=== PATIENT | male | born 1940 | race Caucasian/White ===

== ENCOUNTER → 2016-03-03 | Outpatient (CLI) | payer MEDICARE | LOC: RAD 13:09 | PROVIDERS: ATTEND Internal Medicine Critical Care Medicine | DX: J98.4 Other disorders of lung (principal) | CPT/HCPCS: 71250 ==

== ENCOUNTER → 2016-04-11 | Outpatient (CLI) | payer MEDICARE | LOC: RAD 14:56 | PROVIDERS: ATTEND Specialist | DX: C90.01 Multiple myeloma in remission (principal) | CPT/HCPCS: 77075 ==

== ENCOUNTER 2016-04-18 08:44 | Day surgery (SDC) | payer MEDICARE ==
[2016-04-18 09:31] LABS: HEMATOCRIT 27.4 % (37.9-51.0); HEMOGLOBIN 9.3 g/dL (13.5-17.0); HGB HCT DIFFERENCE 0.5; MEAN CORPUSCULAR HEMOGLOBIN 31.4 pg (27.0-33.4); MEAN CORPUSCULAR HGB CONC 33.9 g/dL (32.0-36.0); MEAN CORPUSCULAR VOLUME 92 fl (80-97); RED BLOOD COUNT 2.96 10^6/uL (4.35-5.55); WHITE BLOOD COUNT 4.9 10^3/uL (4.0-10.5)
[2016-04-18 09:37] LABS: PROTHROMBIN TIME 12.6 SEC (11.4-15.4)
[2016-04-18 09:38] LABS: PARTIAL THROMBOPLASTIN TIME 29.7 SEC (23.5-35.8)
[2016-04-18 09:51] LABS: BLOOD UREA NITROGEN 37 mg/dL (7-20); CREATININE RESULT 5.76 mg/dL (0.52-1.25)
[2016-04-18] MEDS ORDERED: MIDAZOLAM 2 MG/2 ML INJ ONE (11:04)
[2016-04-18] MEDS ORDERED: FENTANYL CITRATE INJ/PF 100 MCG/2 ML AMPUL ONE (11:04)
[2016-04-18] MEDS ORDERED: ACETAMINOPHEN 325 MG TABLET ONE (13:35)
[2016-04-18 15:03] VITALS: BP 145/84
== END 2016-04-18 14:10 | disposition home or self-care (01) ==
LOC: RAD 08:44
PROVIDERS: ATTEND Specialist
PROC: 0QB33ZX Excision of Left Pelvic Bone, Percutaneous Approach, Diagnostic (ICD-10-PCS; principal; 2016-04-18)
DX: C90.01 Multiple myeloma in remission (principal); I12.0 Hypertensive chronic kidney disease with stage 5 chronic kidney disease or end stage renal disease; N18.6 End stage renal disease; D63.1 Anemia in chronic kidney disease; Z79.01 Long term (current) use of anticoagulants; Z88.0 Allergy status to penicillin; Z88.5 Allergy status to narcotic agent
CPT/HCPCS: 36415; 84520; 82565; 85027; 85610; 85730; 77012; 20225; A9270; J2250; J3010

== ENCOUNTER 2016-05-23 10:51 | Outpatient (CLI) | payer MEDICARE ==
[~2016-05-23 10:51] MED LIST: BORTEZOMIB SUBCUT PRN; DISPOSABLE SUBCUT PRN
[2016-05-23 11:49] VITALS: BP 149/66
== END 2016-05-23 11:51 | disposition home or self-care (01) ==
LOC: II 10:51 → 5TH 11:15 → II 11:51
PROVIDERS: ATTEND Specialist
PROC: 3E0 Administration, Physiological Systems and Anatomical Regions, Introduction (ICD-10-PCS; principal; 2016-05-23)
DX: C90.02 Multiple myeloma in relapse (principal); Z51.11 Encounter for antineoplastic chemotherapy
CPT/HCPCS: 96401; J3490; J9041

== ENCOUNTER 2016-06-13 11:47 | Outpatient (CLI) | payer MEDICARE ==
[~2016-06-13 11:47] MED LIST changes: +ACETAMINOPHEN 325 MG TABLET PO PRN; -BORTEZOMIB SUBCUT PRN; +DIPHENHYDRAMINE HCL 25 MG CAPSULE PO PRN; -DISPOSABLE SUBCUT PRN; +FUROSEMIDE INJ/PF 20 MG/2 ML SDV IV PRN; +NORMAL SALINE 1000 ML 1,000 ML IV PRN
[2016-06-13 12:37] LABS: HEMATOCRIT 24.8 % (37.9-51.0); HEMOGLOBIN 8.7 g/dL (13.5-17.0); HGB HCT DIFFERENCE 1.3; MEAN CORPUSCULAR HEMOGLOBIN 32.6 pg (27.0-33.4); MEAN CORPUSCULAR HGB CONC 35.1 g/dL (32.0-36.0); MEAN CORPUSCULAR VOLUME 93 fl (80-97); RED BLOOD COUNT 2.66 10^6/uL (4.35-5.55); RED CELL DISTRIBUTION WIDTH 14.2 % (11.5-14.0); WHITE BLOOD COUNT 4.6 10^3/uL (4.0-10.5)
[2016-06-13] MEDS ORDERED: CALCIUM CARBONATE 500 MG TABLET PO ONE (15:00)
[2016-06-13] MEDS ORDERED: SEVELAMER HCL 400 MG TABLET PO ONE (15:00)
[2016-06-13 16:54] VITALS: BP 157/78
== END 2016-06-13 17:45 | disposition home or self-care (01) ==
LOC: RAD 11:47 → 2S 12:10 → RAD 17:45
PROVIDERS: ATTEND Specialist
PROC: 30233N1 Transfusion of Nonautologous Red Blood Cells into Peripheral Vein, Percutaneous Approach (ICD-10-PCS; principal; 2016-06-13)
DX: D64.9 Anemia, unspecified (principal); C90.02 Multiple myeloma in relapse; R06.02 Shortness of breath
CPT/HCPCS: 86900; 86901; 36415; 36430; 86850; 86920; 71020; P9016; A9270 ×4; J1940

== ENCOUNTER → 2017-03-16 | Outpatient (CLI) | payer MEDICARE ==
--- NOTE | 2017-03-16 10:14 | RADIOLOGY REPORT (SQ) ---
EXAM DESCRIPTION: CHEST PA/LAT COMPLETED DATE/TIME: 03/16/2017 10:02 am REASON FOR STUDY: DYSPNEA (R06.00), ESRD (N18.6) COMPARISON: Chest x-ray dated 06/13/2016. Chest CT dated 03/03/2016. EXAM PARAMETERS: NUMBER OF VIEWS: two views TECHNIQUE: Digital Frontal and Lateral radiographic views of the chest acquired. RADIATION DOSE: NA LIMITATIONS: none FINDINGS: LUNGS AND PLEURA: Density in the right lower lobe unchanged. Bilateral pleural effusions unchanged. MEDIASTINUM AND HILAR STRUCTURES: No masses or contour abnormalities. HEART AND VASCULAR STRUCTURES: Heart normal size. No evidence for failure. BONES: No acute findings. Degenerative changes in the spine. HARDWARE: None in the chest. OTHER: No other significant finding. IMPRESSION: PERSISTENT DENSITY IN THE RIGHT LOWER LOBE AND BILATERAL PLEURAL EFFUSIONS. NO CHANGE C OMPARED TO THE PRIOR STUDIES. TECHNICAL DOCUMENTATION: JOB ID: [id number] [employer]- All Rights Reserved
== END ==
LOC: RAD 09:46
PROVIDERS: ATTEND Internal Medicine Nephrology
DX: N18.6 End stage renal disease (principal); R06.00 Dyspnea, unspecified
CPT/HCPCS: 71046

== ENCOUNTER 2017-03-20 15:52 | Inpatient (IN) | payer MEDICARE ==
--- NOTE | 2017-03-20 18:16 | ER Document Report ---
ED Medical Screen (RME) - General Chief Complaint: Shortness Of Breath Stated Complaint: CHEST PAIN,COUGH,CONGESTION Time Seen by Provider: 03/20/17 17:58 Notes: Patient presents with 5 days of progressive shortness of breath worse with lying down. Patient has a history of multiple myeloma and has had pleural effusions in the past. Denies any chest pain but does have tightness. Denies any abdominal pain nausea vomiting or diarrhea. Denies any fevers. Patient was seen in urgent care clinic and sent to emergency department for further evaluation. Patient states that he had outpatient chest x-ray performed this past Sunday but never was called regarding any results. TRAVEL OUTSIDE OF THE [place] IN LAST 30 DAYS: No - Related Data Allergies/Adverse Reactions: darbepoetin jeannie [From Aranesp (in polysorbate)] Allergy (Verified 05/23/16 11: 43) epoetin jeannie [From Epogen] Allergy (Verified 05/23/16 11:43) hydromorphone [From Dilaudid] Allergy (Verified 05/23/16 11:43) Penicillins Allergy (Verified 12/14/14 09:01) Rash Past Medical History - General Information source: Patient, Relative - Social History Chew tobacco use (# tins/day): No Frequency of alcohol use: None Drug Abuse: None - Past Medical History Cardiac Medical History: Reports: Hx Hypertension Denies: Hx Coronary Artery Disease, Hx Heart Attack Pulmonary Medical History: Reports: Hx Pneumonia - hx of year and a half ago Denies: Hx Asthma, Hx Bronchitis, Hx COPD Neurological Medical History: Denies: Hx Cerebrovascular Accident, Hx Seizures Renal/ Medical History: Reports: Hx End Stage Renal Disease, Hx Hemodialysis. Denies: Hx Peritoneal Dialysis - [facility] Musculoskeltal Medical History: Denies Hx Arthritis Past Surgical History: Reports: Hx Vascular Surgery - AV fistula - Immunizations Hx Diphtheria, Pertussis, Tetanus Vaccination: No Review of Systems - Review of Systems Constitutional: No symptoms reported EENT: No symptoms reported Cardiovascular: No symptoms reported Respiratory: No symptoms reported, Cough, Short of breath Gastrointestinal: No symptoms reported Genitourinary: No symptoms reported Male Genitourinary: No symptoms reported Musculoskeletal: No symptoms reported Skin: No symptoms reported Hematologic/Lymphatic: No symptoms reported Neurological/Psychological: No symptoms reported Physical Exam - Vital signs Vitals: Temp Pulse Resp BP Pulse Ox 97.6 F 90 18 148/74 H 97 03/20/17 16:10 03/20/17 16:10 03/20/17 16:10 03/20/17 16:10 03/20/17 16:10 - General General appearance: Appears well, Alert - HEENT Head: Normocephalic, Atraumatic - Respiratory Respiratory status: No respiratory distress Chest status: Nontender Breath sounds: Decreased air movement - Decreased breath sounds right lower base and crackles left lower base - Cardiovascular Rhythm: Regular Heart sounds: Normal auscultation Murmur: No - Abdominal Inspection: Normal Distension: No distension Bowel sounds: Normal - Neurological Neuro grossly intact: Yes - Psychological Associated symptoms: Normal affect, Normal mood Course - Vital Signs Vital signs: Temp Pulse Resp BP Pulse Ox 97.6 F 90 18 148/74 H 97 03/20/17 16:10 03/20/17 16:10 03/20/17 16:10 03/20/17 16:10 03/20/17 16:10
--- NOTE | 2017-03-20 18:53 | RADIOLOGY REPORT (SQ) ---
EXAM DESCRIPTION: CHEST PA/LAT COMPLETED DATE/TIME: 03/20/2017 6:45 pm REASON FOR STUDY: cough and congestion COMPARISON: 03/16/2017 EXAM PARAMETERS: NUMBER OF VIEWS: two views TECHNIQUE: Digital Frontal and Lateral radiographic views of the chest acquired. RADIATION DOSE: NA LIMITATIONS: none FINDINGS: LUNGS AND PLEURA: The previously described bibasilar densities appears stable. MEDIASTINUM AND HILAR STRUCTURES: No masses or contour abnormalities. HEART AND VASCULAR STRUCTURES: Heart normal size. No evidence for failure. BONES: No acute findings. HARDWARE: None in the chest. OTHER: No other significant finding. IMPRESSION: No significant interval change. Persistent bibasilar densities as noted above. Other f indings as noted above TECHNICAL DOCUMENTATION: JOB ID: [id number] [employer]- All Rights Reserved
--- NOTE | 2017-03-20 18:53 | EKG REPORT ---
SEVERITY:- ABNORMAL ECG - SINUS TACHYCARDIA RUN OF VENTRICULAR PREMATURE COMPLEXES LEFT AXIS DEVIATION. : Confirmed by: Solitario Pina MD 20-Mar-2017 18:53:14
[2017-03-20 19:18] LABS: ABSOLUTE EOSINOPHILS # (AUTO) 0.1 10^3/uL (0.0-0.6); ABSOLUTE LYMPHOCYTES (AUTO) 1.4 10^3/uL (0.5-4.7); ABSOLUTE MONOCYTES (AUTO) 0.7 10^3/uL (0.1-1.4); ABSOLUTE NEUT (AUTO) 3.5 10^3/uL (1.7-8.2); BASOPHILS % (AUTO) 0.8 % (0-2); EOSINOPHILS % (AUTO) 2.4 % (0-6); HEMATOCRIT 26.8 % (37.9-51.0); LYMPHOCYTES % (AUTO) 24.2 % (13-45); MEAN CORPUSCULAR HEMOGLOBIN 31.5 pg (27.0-33.4); MEAN CORPUSCULAR HGB CONC 33.5 g/dL (32.0-36.0); MEAN CORPUSCULAR VOLUME 94 fl (80-97); MONOCYTES % (AUTO) 12.4 % (3-13); PLATELET COUNT 164 10^3/uL (150-450); RED BLOOD COUNT 2.85 10^6/uL (4.35-5.55); SEGMENTED NEUTROPHILS % (AUTO) 60.2 % (42-78); TOTAL CELLS COUNTED % (AUTO) 100 %; WHITE BLOOD COUNT 5.8 10^3/uL (4.0-10.5)
[2017-03-20 19:25] LABS: INTERNATIONAL RATION (INR) 0.92
--- NOTE | 2017-03-20 19:31 | ER Document Report ---
ED General - General Chief Complaint: Shortness Of Breath Stated Complaint: CHEST PAIN,COUGH,CONGESTION Time Seen by Provider: 03/20/17 17:58 Notes: Patient is a 76-year-old male with a past medical history of chronic kidney disease, chronic dialysis dependence, multiple myeloma currently on chemotherapy who presents with 4 days of orthopnea, increased shortness of breath and fatigue. Patient reports that symptoms have been worsening since onset which is what prompted his visit to the emergency department. 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 He states that his shortness of breath is constant and is very unusual for him. He denies any known history of CHF but has had pleural effusions that required thoracentesis in the past. Nothing improves his shortness of breath. He denies any wheezing, fever, sputum production, but does note intermittent chest discomfort. He denies any history of similar symptoms in the past. TRAVEL OUTSIDE OF THE [place] IN LAST 30 DAYS: No - Related Data Allergies/Adverse Reactions: darbepoetin jeannie [From Aranesp (in polysorbate)] Allergy (Verified 05/23/16 11: 43) epoetin jeannie [From Epogen] Allergy (Verified 05/23/16 11:43) hydromorphone [From Dilaudid] Allergy (Verified 05/23/16 11:43) Penicillins Allergy (Verified 12/14/14 09:01) Rash Past Medical History - General Information source: Patient, Relative - Social History Smoking Status: Never Smoker Chew tobacco use (# tins/day): No Frequency of alcohol use: None Drug Abuse: None Lives with: Spouse/Significant other Family History: Reviewed & Not Pertinent Patient has suicidal ideation: No Patient has homicidal ideation: No - Past Medical History Cardiac Medical History: Reports: Hx Hypertension Denies: Hx Coronary Artery Disease, Hx Heart Attack Pulmonary Medical History: Reports: Hx Pneumonia - hx of year and a half ago Denies: Hx Asthma, Hx Bronchitis, Hx COPD Neurological Medical History: Denies: Hx Cerebrovascular Accident, Hx Seizures Renal/ Medical History: Reports: Hx End Stage Renal Disease, Hx Hemodialysis. Denies: Hx Peritoneal Dialysis - [facility] Musculoskeltal Medical History: Denies Hx Arthritis Past Surgical History: Reports: Hx Vascular Surgery - AV fistula - Immunizations Hx Diphtheria, Pertussis, Tetanus Vaccination: No Hx Pneumococcal Vaccination: 11/19/14 Review of Systems - Review of Systems Notes: Constitutional: Negative for fever. HENT: Negative for sore throat. Eyes: Negative for visual changes. Cardiovascular: Positive for chest pain. Respiratory: Positive for shortness of breath. Positive for orthopnea Gastrointestinal: Negative for abdominal pain, vomiting or diarrhea. Genitourinary: Negative for dysuria. Musculoskeletal: Negative for back pain. Skin: Negative for rash. Neurological: Negative for headaches, weakness or numbness. 10 point ROS negative except as marked above and in HPI. Physical Exam - Vital signs Vitals: Temp Pulse Resp BP Pulse Ox 97.6 F 90 18 148/74 H 97 03/20/17 16:10 03/20/17 16:10 03/20/17 16:10 03/20/17 16:10 03/20/17 16:10 Interpretation: Normal Notes: PHYSICAL EXAMINATION: GENERAL: Appears chronically ill, uncomfortable but in no acute distress HEAD: Atraumatic, normocephalic. EYES: Pupils equal round and reactive to light, extraocular movements intact, sclera anicteric, conjunctiva are normal. ENT: nares patent, oropharynx clear without exudates. Moderately dry mucous membranes. NECK: Normal range of motion, supple without lymphadenopathy LUNGS: Breath sounds clear to auscultation bilaterally and equal. No wheezes rales or rhonchi. HEART: Regular rate and rhythm without murmurs ABDOMEN: Soft, nontender, normoactive bowel sounds. No guarding, no rebound. No masses appreciated. EXTREMITIES: Normal range of motion, trace edema in the bilateral lower extremities is equal and symmetric. No cyanosis. NEUROLOGICAL: No focal neurological deficits. Moves all extremities spontaneously and on command. PSYCH: Normal mood, normal affect. SKIN: Warm, Dry, normal turgor, no rashes or lesions noted. Course - Re-evaluation Re-evalutation: 03/20/17 19:30 Patient presents with persistent orthopnea and shortness of breath for the past 4 days unchanged when he received dialysis yesterday. Patient appears chronically ill but in no acute distress. Vitals at time of my assessment without hypoxia, tachypnea or tachycardia. Patient becomes visibly dyspneic with lying flat. Chest x-ray performed today is unchanged from 1 4 days ago which shows a persistent right lower lobe density as well as bibasilar pleural effusions. Patient is currently receiving chemotherapy for multiple myeloma and is quite high risk for pulmonary embolus. He notes an associated chest heaviness slightly worsened by taking a deep breath. Given his elevated risk for pulmonary embolus and the relative unchanged nature of his chest x-ray since over a year ago, will proceed with a CT of the chest to further clarify. 03/21/17 00:28 CT of the chest does not demonstrate any evidence of an acute pulmonary embolus , chronic lung changes the right lower lobe but no evidence of pulmonary edema or infection. Patient's initial troponin was slightly elevated repeat troponin was obtained and is downtrending. Did a bedside echocardiogram that did not Demster any evidence of a pericardial effusion but does show global dyskinesis of the heart and this is clinically consistent with my primary concern of the patient has developed CHF or pulmonary hypertension given his clinical history. I discussed at length with hospital Dr. Anders who will accept the patient for admission for inpatient echocardiogram and consideration of a stress test as well as a cardiology consult. - Vital Signs Vital signs: Temp Pulse Resp BP Pulse Ox 97.6 F 90 22 H 142/78 H 98 03/20/17 16:10 03/20/17 16:10 03/21/17 02:01 03/21/17 02:01 03/21/17 02:01 - Laboratory Result Diagrams: 03/20/17 19:00 03/20/17 19:00 Laboratory results interpreted by me: 03/20/17 03/20/17 03/20/17 19:00 19:00 19:00 RBC 2.85 L Hgb 9.0 L Hct 26.8 L Sodium 136.8 L BUN 35 H Creatinine 5.71 H Est GFR ( Amer) 12 L Est GFR (Non-Af Amer) 10 L Magnesium 2.4 H Direct Bilirubin 0.5 H AST 15 L ALT 15 L NT-Pro-B Natriuret Pep 82925 H - Diagnostic Test Radiology reviewed: Image reviewed, Reports reviewed Radiology results interpreted by me: 03/21/17 02:46 Chest x-ray: Scarring of the right lung base unchanged from prior exam - EKG Interpretation by Me Additional EKG results interpreted by me: 03/21/17 02:46 Sinus tachycardia. Rate 107. Frequent PVCs. No ST elevations or depressions. Discharge - Discharge Clinical Impression: Orthopnea, End stage renal disease, Shortness of breath, Chest discomfort Condition: Fair Disposition: ADMITTED OBSERVATION Admitting Provider: [facility] Admitted: Telemetry
[2017-03-20 19:34] LABS: ALANINE AMINOTRANSFERASE 15 U/L (21-72); ALBUMIN 4.3 g/dL (3.5-5.0); ALKALINE PHOSPHATASE 69 U/L (38-126); ANION GAP 9 (5-19); ASPARTATE AMINO TRANSFERASE 15 U/L (17-59); BILIRUBIN,DIRECT 0.5 mg/dL (0.0-0.4); BILIRUBIN,TOTAL 0.5 mg/dL (0.2-1.3); BLOOD UREA NITROGEN 35 mg/dL (7-20); CALCIUM 10.2 mg/dL (8.4-10.2); CARBON DIOXIDE 27 mmol/L (22-30); CHLORIDE 101 mmol/L (98-107); GLUCOSE 98 mg/dL (75-110); MAGNESIUM 2.4 mg/dL (1.6-2.3); POTASSIUM 4.5 mmol/L (3.6-5.0); SODIUM 136.8 mmol/L (137-145); TOTAL PROTEIN 6.9 g/dL (6.3-8.2)
[2017-03-20 19:58] LABS: TROPONIN I 0.062 ng/mL
--- NOTE | 2017-03-20 21:33 | RADIOLOGY REPORT (SQ) ---
EXAM DESCRIPTION: CTA CHEST COMPLETED DATE/TIME: 03/20/2017 8:58 pm REASON FOR STUDY: eval sob, orthopnea COMPARISON: 2017 TECHNIQUE: CT scan of the chest performed using helical scanning technique with dynamic intravenous contrast injection. Images reviewed with lung, soft tissue and bone windows. Reconstructed coronal and sagittal MPR images reviewed. Additional 3 dimensional post-processing performed to develop Maximal Intensity Projection images (AK P). All images stored on PACS. All CT scanners at this facility use dose modulation, iterative reconstruction, and/or weight based d osing when appropriate to reduce radiation dose to as low as reasonably achievable (ALARA). [facility]: Dose Right [facility]: CareDose [facility]: Dose Right [facility]: Teradose 4D [facility]: InfoDif CONTRAST TYPE AND DOSE: contrast/concentration: Isovue 300.00 mg/ml; Total Contrast Delivered: 90.0 ml; Total Saline Delivered: 70.0 ml Contrast bolus adequate for pulmonary arteries and aorta. RENAL FUNCTION: Within acceptable limits. RADIATION DOSE: . LIMITATIONS: None. FINDINGS: LUNGS AND PLEURA: Small thick-walled mildly complicated right pleural effusion with extens ivy rounded atelectasis in the right lower lobe. Trace left pleural fluid with mild rounded atelecta sis laterally in the left lower lobe. Additional areas of bilateral lung scarring peripherally. The overall appearance is relatively chronic when compared to 2017 study. AORTA AND GREAT VESSELS: No aneurysm. Contrast bolus not optimized for the aorta. HEART: Cardiac enlargement. No pericardial effusion. Mild coronary calcification. PULMONARY ARTERIES: No emboli visualized in the main pulmonary arteries or the segmental branches. HILAR AND MEDIASTINAL STRUCTURES: No identified masses or abnormal nodes. HARDWARE: None in the chest. UPPER ABDOMEN: No significant findings. Limited exam. 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 BONES: No acute or significant finding. 3D MIPS: Confirm above findings. OTHER: No other significant finding. IMPRESSION: 1. Chronic lung changes. Stable appearance compared to last year. 2. No evidence of pu lmonary embolus or acute aortic disease. COMMENT: Quality ID # [id number]: Final reports with documentation of one or more dose reduction techniques (e.g., Automated exposure control, adjustment of the mA and/or kV according to patient size, use of iterative reconstruction technique) TECHNICAL DOCUMENTATION: JOB ID: [id number]- All Rights Reserved
[2017-03-20] MEDS ORDERED: HYDRALAZINE HCL INJ/PF 20 MG/1 ML SDV IV PRN (23:54)
[2017-03-20] MEDS ORDERED: LACTULOSE SYRUP 20 GM/30 ML UDCUP PO ONE (23:54)
[2017-03-20] MEDS ORDERED: ACETAMINOPHEN 325 MG TABLET PO PRN (23:54)
[2017-03-20] MEDS ORDERED: MAG HYDROX/AL HYDROX/SIMETH SUSP 30 ML UDCUP PO PRN (23:56)
[2017-03-20] MEDS ORDERED: MAGNESIUM HYDROXIDE SUSP 30 ML UDCUP PO PRN (23:56)
[2017-03-21] MEDS ORDERED: METOPROLOL TARTRATE 25 MG TABLET PO ONE (00:30)
--- NOTE | 2017-03-21 05:28 | PDOC H&P ---
History of Present Illness Admission Date/PCP: 03/21/17 00:14 XAVIER GALLAGHER MD Patient complains of: Shortness of breath, chest and abdominal pain History of Present Illness: SARAH BETH LIMA JR is a 76 year old male with a past medical history of multiple myeloma, systolic heart failure ejection fraction 40%, anemia and nonoliguric renal failure on hemodialysis with Dr. Butler Sunday. Patient presents with 5 days of shortness of breath with deep breathing and chest, abdominal pain which is intermittent, pressure-like, nonradiating of 2 out of 5 intensity becoming increasingly frequent. He denies palpitations, nausea vomiting or diaphoresis. EKG is notable for long QT interval and frequent PVCs, cardiac enzymes and CTA chest are negative. He is referred to the hospitalist for observation. Patient denies previous episode, new medications or current pain. Past Medical History Cardiac Medical History: Reports: Hypertension Denies: Coronary Artery Disease, Myocardial Infarction Pulmonary Medical History: Reports: Pneumonia - hx of year and a half ago Denies: Asthma, Bronchitis, Chronic Obstructive Pulmonary Disease (COPD) Neurological Medical History: Denies: Seizures Renal/ Medical History: Reports: End Stage Renal Disease Musculoskeltal Medical History: Denies: Arthritis Hematology: Reports: Anemia Past Surgical History Past Surgical History: Reports: Vascular Surgery - AV fistula Social History Information Source: Patient, Emergency Med Personnel, [facility] Records Lives with: Spouse/Significant other Smoking Status: Never Smoker Drugs: None Hx Prescription Drug Abuse: No - Advance Directive Resuscitation Status: Full Code Family History Family History: Hypertension Parental Family History Reviewed: Yes Children Family History Reviewed: Yes Sibling(s) Family History Reviewed.: Yes Medication/Allergy Home Medications: Amlodipine Besylate 2.5 mg PO DAILY 02/18/15 B Complex W-C No.20/Folic Acid [Triphrocaps Softgel] 1 cap PO DAILY 02/18/15 Calcium Carbonate [Calcium] 1 tab PO DAILY 02/18/15 Folic Acid 1 tab PO DAILY 02/18/15 Sevelamer Carbonate [Renvela] 800 mg PO TID 02/18/15 Sennosides/Docusate Sodium [Senna Laxative Tablet] 2 tab PO DAILY 07/13/15 Allergies/Adverse Reactions: darbepoetin jeannie [From Aranesp (in polysorbate)] Allergy (Verified 05/23/16 11: 43) epoetin jeannie [From Epogen] Allergy (Verified 05/23/16 11:43) hydromorphone [From Dilaudid] Allergy (Verified 05/23/16 11:43) Penicillins Allergy (Verified 12/14/14 09:01) Rash Review of Systems Constitutional: ABSENT: chills, fever(s), headache(s), weight gain, weight loss Eyes: ABSENT: visual disturbances Ears: ABSENT: hearing changes Cardiovascular: ABSENT: chest pain, dyspnea on exertion, edema, orthropnea, palpitations Respiratory: ABSENT: cough, hemoptysis Gastrointestinal: PRESENT: as per HPI, abdominal pain, bloating, constipation. ABSENT: coffee ground emesis, diarrhea, hematemesis, hematochezia, melena, nausea, vomiting Genitourinary: ABSENT: dysuria, hematuria Musculoskeletal: ABSENT: joint swelling Integumentary: ABSENT: rash, wounds Neurological: ABSENT: abnormal gait, abnormal speech, confusion, dizziness, focal weakness, syncope Psychiatric: ABSENT: anxiety, depression, homidical ideation, suicidal ideation Endocrine: ABSENT: cold intolerance, heat intolerance, polydipsia, polyuria Hematologic/Lymphatic: ABSENT: easy bleeding, easy bruising Physical Exam Vital Signs: Temp Pulse Resp BP Pulse Ox 98.4 F 68 20 119/68 99 03/21/17 04:13 03/21/17 04:13 03/21/17 04:13 03/21/17 04:13 03/21/17 04:13 Intake & Output 03/19/17 03/20/17 03/21/17 11:59 11:59 11:59 Intake Total 3 Balance 3 General appearance: PRESENT: no acute distress, well-developed, well-nourished Head exam: PRESENT: atraumatic, normocephalic Eye exam: PRESENT: conjunctiva pink, EOMI, PERRLA. ABSENT: scleral icterus Ear exam: PRESENT: normal external ear exam Mouth exam: PRESENT: moist, tongue midline Neck exam: ABSENT: carotid bruit, JVD, lymphadenopathy, thyromegaly Respiratory exam: PRESENT: clear to auscultation kenyatta. ABSENT: rales, rhonchi, wheezes Cardiovascular exam: PRESENT: RRR. ABSENT: diastolic murmur, rubs, systolic murmur Pulses: PRESENT: normal dorsalis pedis pul Vascular exam: PRESENT: normal capillary refill GI/Abdominal exam: PRESENT: normal bowel sounds, soft. ABSENT: distended, guarding, mass, organolmegaly, rebound, tenderness Rectal exam: PRESENT: deferred Extremities exam: PRESENT: full ROM. ABSENT: calf tenderness, clubbing, pedal edema Neurological exam: PRESENT: alert, awake, oriented to person, oriented to place , oriented to time, oriented to situation, CN II-XII grossly intact. ABSENT: motor sensory deficit Psychiatric exam: PRESENT: appropriate affect, normal mood. ABSENT: homicidal ideation, suicidal ideation Skin exam: PRESENT: dry, intact, warm. ABSENT: cyanosis, rash Results Impressions: Chest X-Ray 03/20/17 17:59 IMPRESSION: No significant interval change. Persistent bibasilar densities as noted above. Other findings as noted above Chest/Abdomen CTA 03/20/17 19:29 IMPRESSION: 1. Chronic lung changes. Stable appearance compared to last year. 2. No evidence of pulmonary embolus or acute aortic disease. Assessment & Plan - Diagnosis (1) Chest pain Qualifiers: Chest pain type: unspecified Qualified Code(s): R07.9 - Chest pain, unspecified Is this a current diagnosis for this admission?: Yes Plan: Atypical chest pain though the patient's pain is atypical there are multiple risk factors for coronary artery disease and subsequently will observe and evaluation of acute coronary syndrome versus coronary artery disease with anginal equivalents. Cardiac monitoring blood pressure Q6 hours ,TSH, lipid profile, serial cardiac enzymes and cardiac stress test. (2) Congestive heart failure Is this a current diagnosis for this admission?: Yes Plan: Appears compensated however workup does not answer his complaint, patient admits to consuming excessive beverages throughout the day. Follow-up echocardiogram. (3) End stage renal failure on dialysis Is this a current diagnosis for this admission?: Yes Plan: Nephrology consulted. (4) Constipation Is this a current diagnosis for this admission?: Yes Plan: Bowel regimen. (5) QT prolongation Is this a current diagnosis for this admission?: Yes Plan: Telemetry monitoring evaluate magnesium and ionized calcium. - Time Time Spent: 50 to 70 Minutes - Inpatient Certification Medical Necessity: Need Close Monitoring Due to Risk of Patient Decompensation
[2017-03-21] MEDS ORDERED: HEPARIN SOD (PORCINE) 5,000 UNIT/ML 1 ML SYRINGE SUBCUT SCH (06:00)
[2017-03-21] MEDS: HEPARIN SOD (PORCINE) 5,000 UNIT/ML 1 ML SYRINGE SUBCUT SCH ×3 (06:58→21:22)
[2017-03-21 07:12] LABS: CHOLESTEROL 170.91 mg/dL (0-200); CREATINE KINASE 36 U/L (55-170); TRIGLYCERIDES 86 mg/dL (<150)
[2017-03-21 07:22] LABS: CREATINE KINASE MB 0.42 ng/mL (<4.55); DIRECT LDL 90 mg/dL (<100); TROPONIN I 0.051 ng/mL
[2017-03-21] MEDS: SEVELAMER HCL 400 MG TABLET PO SCH ×3 (08:23→18:38)
[2017-03-21] MEDS ORDERED: BORTEZOMIB SUBCUT PRN ×2 (12:22→13:06)
[2017-03-21] MEDS ORDERED: DISPOSABLE SUBCUT PRN ×2 (12:22→13:06)
[2017-03-21] MEDS: DOCUSATE SODIUM 100 MG CAPSULE PO SCH (14:53)
[2017-03-21] MEDS: AMLODIPINE BESYLATE 2.5 MG TABLET PO SCH (14:54)
[2017-03-21] MEDS: SENNOSIDES/DOCUSATE 8.6-50 MG 1 EACH TABLET PO SCH (14:55)
[2017-03-21] MEDS: FOLIC ACID/VITAMIN B COMP W-C CAPSULE PO SCH (14:55)
[2017-03-21] MEDS: METOPROLOL TARTRATE 25 MG TABLET PO SCH ×2 (14:56→21:22)
[2017-03-21] MEDS: FLUTICASONE NASAL SPRAY 50 MCG/SPRY 120 SPRAY/16 GM NASL SCH ×2 (15:00→21:22)
[2017-03-21] MEDS: ASPIRIN 81 MG TABLET, ENT COATED PO SCH (15:06)
--- NOTE | 2017-03-21 16:26 | PDOC PROGRESS REPORT ---
Subjective Progress Note for:: 03/21/17 Subjective:: Patient seen on rounds. He is recently returned from dialysis. He continues to have orthopnea. He states this is been over the last 5 days. He denies any chest congestion or cough. He denies any chest pain or palpitations. He denies any lower extremity edema. He has no prior history of congestive heart failure. He states he has been on hemodialysis for the last 7 years. He denies any significant arthralgias or myalgias. Remaining review of systems are negative. Reason For Visit: ESRD,NEW HEART FAILURE Physical Exam Vital Signs: Temp Pulse Resp BP Pulse Ox 98.4 F 101 H 14 133/73 H 100 03/21/17 14:52 03/21/17 14:52 03/21/17 14:52 03/21/17 14:52 03/21/17 14:52 Intake & Output 03/20/17 03/21/17 03/22/17 06:59 06:59 06:59 Intake Total 343 Output Total 0 3900 Balance 343 -3900 Weight 96.4 kg 96.4 kg General appearance: PRESENT: no acute distress, obese, well-developed, well- nourished Head exam: PRESENT: atraumatic, normocephalic Eye exam: PRESENT: conjunctiva pink, EOMI, PERRLA. ABSENT: scleral icterus Ear exam: PRESENT: normal external ear exam Mouth exam: PRESENT: moist, tongue midline Neck exam: PRESENT: JVD, other Respiratory exam: PRESENT: crackles - Bibasilar, symmetrical, unlabored Cardiovascular exam: PRESENT: RRR. ABSENT: diastolic murmur, rubs, systolic murmur Pulses: PRESENT: normal dorsalis pedis pul Vascular exam: PRESENT: normal capillary refill GI/Abdominal exam: PRESENT: normal bowel sounds, soft. ABSENT: distended, guarding, mass, organolmegaly, rebound, tenderness Rectal exam: PRESENT: deferred Extremities exam: PRESENT: full ROM. ABSENT: calf tenderness, clubbing, pedal edema Neurological exam: PRESENT: alert, awake, oriented to person, oriented to place , oriented to time, oriented to situation, CN II-XII grossly intact. ABSENT: motor sensory deficit Psychiatric exam: PRESENT: appropriate affect, normal mood. ABSENT: homicidal ideation, suicidal ideation Skin exam: PRESENT: dry, intact, warm, other - AV shunt palpable on left forearm with good thrill. ABSENT: cyanosis, rash Results Laboratory Results: 03/21/17 03/21/17 06:38 06:38 Ionized Calcium Evelyne 1.17 Triglycerides 86 Cholesterol 170.91 LDL Cholesterol Direct 90 VLDL Cholesterol 17.0 HDL Cholesterol 59 03/21/17 03/21/17 06:38 06:38 Creatine Kinase 36 L CK-MB (CK-2) 0.42 Troponin I 0.051 Impressions: Chest X-Ray 03/20/17 17:59 IMPRESSION: No significant interval change. Persistent bibasilar densities as noted above. Other findings as noted above Chest/Abdomen CTA 03/20/17 19:29 IMPRESSION: 1. Chronic lung changes. Stable appearance compared to last year. 2. No evidence of pulmonary embolus or acute aortic disease. Assessment & Plan - Diagnosis (1) Congestive heart failure Is this a current diagnosis for this admission?: Yes Plan: Patient has no prior history of congestive heart failure. Transthoracic echocardiogram results are pending. He has been on hemodialysis for the last 7 years (2) Constipation Qualifiers: Constipation type: slow transit constipation Qualified Code(s): K59.01 - Slow transit constipation Is this a current diagnosis for this admission?: Yes (3) Orthopnea Is this a current diagnosis for this admission?: Yes Plan: Patient has no prior history of congestive heart failure echocardiogram is pending continue home cathartics patient has had orthopnea for the last 5 days which was sudden and development (4) Bilateral pleural effusion Is this a current diagnosis for this admission?: Yes Plan: Secondary to congestive heart failure (6) QT prolongation Is this a current diagnosis for this admission?: Yes (7) CKD (chronic kidney disease) stage V requiring chronic dialysis Is this a current diagnosis for this admission?: Yes Plan: Patient's been on hemodialysis for the last 7 years. (8) End stage renal failure on dialysis Is this a current diagnosis for this admission?: Yes Plan: Dr [place] is consulted - Time Time Spent with patient: 25-34 minutes Medications reviewed and adjusted accordingly: Yes Anticipated discharge: Home
[2017-03-21] MEDS: NITROGLYCERIN 5 MG (0.2 MG/HR) PATCH.TD24 TD SCH (17:14)
--- NOTE | 2017-03-21 17:42 | PDOC CONSULTATION ---
Consultation Consult Date: 03/21/17 Attending physician:: XAVIER CALDERÓN Consult reason:: I was asked by Dr. Calderón to see the patient to supervise dialysis while the patient is here in the hospital and to evaluate the patient for ultrafiltration as necessary. 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 Kumar, systolic heart failure ejection fraction 40%, anemia not able to be given Procrit secondary to allergy who presents with 5 days of shortness of breath with deep breathing and chest, abdominal pain which is intermittent, pressure-like, nonradiating of 2 out of 5 intensity becoming increasingly frequent. He relates that he could not lie down since last week Sunday because he become short of breath lying down. He actually woke up with shortness of breath a week ago. He denies palpitations , nausea vomiting or diaphoresis. He has some productive cough but unable to expectorate anything. He otherwise denies any fever nor chills. EKG is notable for long QT interval and frequent PVCs, cardiac enzymes and CTA chest are negative. Patient denies previous episode, new medications or current pain. I did order a chest x-ray on Sunday which shows minimal bilateral pleural effusion which was unchanged from previous x-ray. He had history of significant pleural effusion years ago requiring thoracentesis. Because of this complaint of shortness of breathing we have been challenging his dry weight at [facility] since last week. We are able to decrease his dry weight by 1 kg for the last 3 treatments at [facility]. However despite that he did not report any improvement in his shortness of breathing and orthopnea. I saw the patient earlier during initiation of hemodialysis this morning. This seems to be pretty comfortable but he needs to be at about 45 angle and cannot lay flat due to shortness of breath. He tolerated dialysis until the end when he started having some cramping due to ultrafiltration so we needed to give him some saline back. His echocardiogram is currently pending. He is supposed to be scheduled for stress test in the morning. Past Medical History Cardiac Medical History: Reports: Atrial Fibrillation, Hypertension-primary Pulmonary Medical History: Reports: Pneumonia - hx of year and a half ago, Other - Chronic pleural effusion Renal/ Medical History: Reports: End Stage Renal Disease, Renal Osteodystropy Malignancy Medical History: Reports: Other - Multiple myeloma status post stem cell transplant at [place], [place] GI Medical History: Reports: Gastroesophageal Reflux Disease Hematology Medical History: Reports Anemia of Chronic Kidney Disease Past Surgical History Past Surgical History: Reports: Dialysis Access Surgery AVF, Tonsillectomy, Other - Stem cell transplant at [place], [place]; bone biopsy 2010 Social History Information Source: Patient Lives with: Spouse/Significant other Smoking Status: Never Smoker Frequency of Alcohol Use: None Drugs: None Hx Prescription Drug Abuse: No - Advance Directive Resuscitation Status: Full Code Family History Family History: CAD - Father had an OK, CVA - Mother, Malignancy - Leukemia in his brother Parental Family History Reviewed: Yes Children Family History Reviewed: Yes Sibling(s) Family History Reviewed.: Yes Medication/Allergy Home Medications: Amlodipine Besylate [Norvasc 2.5 mg Tablet] 2.5 mg PO DAILY 03/21/17 Lactulose [Enulose] 30 ml PO Q8HP PRN 03/21/17 Sevelamer Carbonate [Renvela] 1,600 mg PO MEALS 03/21/17 Allergies/Adverse Reactions: darbepoetin jeannie [From Aranesp (in polysorbate)] Allergy (Verified 05/23/16 11: 43) epoetin jeannie [From Epogen] Allergy (Verified 05/23/16 11:43) hydromorphone [From Dilaudid] Allergy (Verified 05/23/16 11:43) Penicillins Allergy (Verified 12/14/14 09:01) Rash Review of Systems All systems: reviewed and no additional remarkable complaints except as stated Review of Systems: Constitutional: ABSENT: chills, fatigue, fever(s), headache(s), weight gain, weight loss Eyes: ABSENT: visual disturbances Ears: ABSENT: hearing changes Cardiovascular: ABSENT: Edema, palpitations; admits shortness of breath and orthopnea Respiratory: ABSENT: Hemoptysis; admits cough Gastrointestinal: ABSENT: abdominal pain, constipation, diarrhea, hematemesis, hematochezia, nausea, vomiting Genitourinary: ABSENT: dysuria, hematuria Musculoskeletal: ABSENT: joint swelling Integumentary: ABSENT: rash, wounds Neurological: ABSENT: abnormal gait, abnormal speech, confusion, dizziness, focal weakness, numbness, syncope Psychiatric: ABSENT: anxiety, depression Endocrine: ABSENT: cold intolerance, heat intolerance, polydipsia, polyuria Hematologic/Lymphatic: ABSENT: easy bleeding, easy bruising, lymphadenopathy Physical Exam Vital Signs: Temp Pulse Resp BP Pulse Ox 98.5 F 79 20 112/54 L 93 03/21/17 15:00 03/21/17 15:00 03/21/17 15:00 03/21/17 15:00 03/21/17 15:00 Intake & Output 03/20/17 03/21/17 03/22/17 06:59 06:59 06:59 Intake Total 343 Output Total 0 3900 Balance 343 -3900 Weight 96.4 kg 96.4 kg Vitals and initiation of dialysis: Pressure 132/73, heart rate of 73, oxygen saturation 100% with oxygen at 2 L via nasal cannula, blood flow rate of 450 mL/ min, dialysate flow rate of 800 mL/min. Exam: General appearance: no acute distress, cooperative, well-developed, well- nourished Head exam: PRESENT: atraumatic, normocephalic Eye exam: PRESENT: Conjunctiva slightly pale, EOMI, PERRLA. ABSENT: conjunctival injection, scleral icterus Mouth exam: PRESENT: moist, neck supple, tongue midline Neck exam: PRESENT: full ROM. ABSENT: carotid bruit, JVD, lymphadenopathy, thyromegaly Respiratory exam: PRESENT: Diminished to auscultation bilaterally. Left basal crackles ABSENT: Rhonchi, stridor, wheezes Cardiovascular exam: PRESENT: RRR, +S1, +S2. ABSENT: systolic murmur Pulses: PRESENT: normal radial pulses, normal dorsalis pedis pulses GI/Abdominal exam: PRESENT: normal bowel sounds, soft. ABSENT: guarding, mass, tenderness Rectal exam: deferred Extremities exam: PRESENT: full ROM. ABSENT: calf tenderness, pedal edema Musculoskeletal: PRESENT: full ROM. ABSENT: deformity Neurological exam: PRESENT: alert, Awake, Oriented to person, Oriented to place , Oriented to time, reflexes normal, CN II-XII grossly intact. ABSENT: motor sensory deficit Psychiatric exam: PRESENT: appropriate affect, normal mood. ABSENT: homicidal ideation, suicidal ideation Skin exam: PRESENT: intact, dry, warm. Slightly pale ABSENT: rash Results Laboratory Results: 03/21/17 03/21/17 06:38 06:38 Ionized Calcium Evelyne 1.17 Triglycerides 86 Cholesterol 170.91 LDL Cholesterol Direct 90 VLDL Cholesterol 17.0 HDL Cholesterol 59 03/21/17 03/21/17 06:38 06:38 Creatine Kinase 36 L CK-MB (CK-2) 0.42 Troponin I 0.051 Impressions: Chest X-Ray 03/20/17 17:59 IMPRESSION: No significant interval change. Persistent bibasilar densities as noted above. Other findings as noted above Chest/Abdomen CTA 03/20/17 19:29 IMPRESSION: 1. Chronic lung changes. Stable appearance compared to last year. 2. No evidence of pulmonary embolus or acute aortic disease. Assessment & Plan - Diagnosis (1) End stage renal failure on dialysis Is this a current diagnosis for this admission?: Yes Plan: We did dialysis today for 3 hours, using the patient's AV fistula, with 2 potassium bath, blood flow rate of 450 mL per minute, dialysate flow rate of 800 mL per minute, ultrafiltration 2-3 L as tolerated, no heparin and patient cannot have Procrit since he is allergic to it. Patient was monitored toward during dialysis. (2) Anemia in chronic kidney disease (CKD) Is this a current diagnosis for this admission?: Yes Plan: Patient is not being given any Epogen or Procrit because he is allergic to it. However he can receive IV iron if needed. In the past we needed to do blood transfusion if necessary. (3) Orthopnea Is this a current diagnosis for this admission?: Yes Plan: Cardiac workup currently being done. Echocardiogram is pending. Stress test is scheduled for tomorrow. (4) Bilateral pleural effusion Is this a current diagnosis for this admission?: Yes Plan: This is minimal and small and unchanged from previous chest x-ray. (5) Hypertension Is this a current diagnosis for this admission?: Yes (6) Frequent unifocal PVCs Is this a current diagnosis for this admission?: Yes - Notes Notes: Thank you very much for this consultation. We will follow the patient with you. - Time Time Spent: 50 to 70 Minutes
--- NOTE | 2017-03-21 19:34 | XCELERA REPORT ---
[address] [address] Transthoracic Echocardiogram Report Name: SARAH BETH LIMA JR Age: 76 yrs Gender: Male : 1940 Patient Status: Inpatient Patient Location: [address] [place] [address] Study Date: 03/21/2017 03:25 PM Height: 72 in Weight: 212 lb BSA: 2.2 m2 Procedure: A complete two-dimensional transthoracic echocardiogram was performed (2D, M-mode, spectral and color flow Doppler). The study was technically difficult with many images being suboptimal in quality. Reason For Study: lvh Ordering Physician: XAVIER CALDERÓN Performed By: Jo Hopper Interpretation Summary Left ventricular systolic function is mildly reduced. Doppler measurements suggest pseudonormalized left ventricular relaxation, which is associated with grade II/IV or mild to moderate diastolic dysfunction There is borderline concentric left ventricular hypertrophy. The left ventricle is mildly dilated. There is mild global hypokinesis of the left ventricle. The right ventricular systolic function is normal. The right atrium is normal in size The left atrium is mildly dilated. There is no mitral valve stenosis. There is a trace to mild amount of mitral regurgitation There is no aortic valve stenosis No aortic regurgitation is present. The aortic root is not well visualized. The inferior vena cava was not well visualized There is no pericardial effusion. MMode/2D Measurements & Calculations RVDd: 2.8 cm LVIDd: 6.5 cmFS: 24.2 % Ao root diam: 3.8 cm IVSd: 0.97 cm LVIDs: 4.9 cmEDV(Teich): 213.9 ml LVPWd: 1.0 cmESV(Teich): 113.0 mlAo root area: 11.1 cm2 EF(Teich): 47.2 % LVOT diam: 2.4 cm LVOT area: 4.5 cm2 Doppler Measurements & Calculations MV E max beverly: MV dec slope: Ao V2 max: LV V1 max P.0 cm/sec 328.6 cm/sec2 140.0 cm/sec 2.7 mmHg MV A max beverly: MV dec time: Ao max PG: LV V1 max: 94.2 cm/sec 0.26 sec 7.8 mmHg 82.5 cm/sec MV E/A: 0.89 KELLY(V,D): 2.7 cm2 PA V2 max: TR max beverly: 66.7 cm/sec 218.1 cm/sec PA max PG: TR max P.0 mmHg 1.8 mmHg Left Ventricle The left ventricle is mildly dilated. There is borderline concentric left ventricular hypertrophy. Left ventricular systolic function is mildly reduced. Doppler measurements suggest pseudonormalized left ventricular relaxation, which is associated with grade II/IV or mild to moderate diastolic dysfunction. There is mild global hypokinesis of the left ventricle. Right Ventricle The right ventricle is grossly normal size. There is normal right ventricular wall thickness. The right ventricular systolic function is normal. Atria The right atrium is normal in size. The left atrium is mildly dilated. Interarterial septum not well visualized and not well dopplered. Cannot comment on ASD/PFO presence. Mitral Valve The mitral valve is grossly normal. There is no mitral valve stenosis. There is a trace to mild amount of mitral regurgitation. Aortic Valve The aortic valve is grossly normal. There is no aortic valve stenosis. No aortic regurgitation is present. Tricuspid Valve The tricuspid valve is not well visualized, but is grossly normal. There is no tricuspid stenosis. There is a trace or physiologic amount of tricuspid regurgitation. Pulmonic Valve The pulmonic valve is not well visualized. Great Vessels The aortic root is not well visualized. The inferior vena cava was not well visualized. Effusions There is no pericardial effusion. : XAVIER CALDERÓN > Brandon Chahal
[2017-03-22] MEDS: HEPARIN SOD (PORCINE) 5,000 UNIT/ML 1 ML SYRINGE SUBCUT SCH ×3 (06:32→21:17)
[2017-03-22] MEDS: SEVELAMER HCL 400 MG TABLET PO SCH ×3 (09:09→17:27)
[2017-03-22] MEDS: FLUTICASONE NASAL SPRAY 50 MCG/SPRY 120 SPRAY/16 GM NASL SCH ×2 (09:10→21:17)
[2017-03-22] MEDS: DOCUSATE SODIUM 100 MG CAPSULE PO SCH (09:10)
[2017-03-22] MEDS: FOLIC ACID/VITAMIN B COMP W-C CAPSULE PO SCH (09:10)
[2017-03-22] MEDS: SENNOSIDES/DOCUSATE 8.6-50 MG 1 EACH TABLET PO SCH (09:10)
[2017-03-22] MEDS: NITROGLYCERIN 5 MG (0.2 MG/HR) PATCH.TD24 TD SCH (12:54)
[2017-03-22] MEDS: METOPROLOL TARTRATE 25 MG TABLET PO SCH ×2 (12:54→21:17)
[2017-03-22] MEDS: AMLODIPINE BESYLATE 2.5 MG TABLET PO SCH (12:55)
[2017-03-22] MEDS: ASPIRIN 81 MG TABLET, ENT COATED PO SCH (13:01)
[2017-03-22] MEDS ORDERED: REGADENOSON INJ 0.4 MG/5 ML DISP.SYRIN IV ONE (14:36)
[2017-03-22] MEDS ORDERED: AMINOPHYLLINE INJ/PF 250 MG/10 ML SDV IV ONE (14:36)
--- NOTE | 2017-03-22 15:00 | DRAGON STRESS TEST REPORT ---
INTRAVENOUS LEXISCAN CARDIOLITE STRESS TEST USING SINGLE PHOTON EMMISION COMPUTERIZED TOMOGRAPHIC. DATE OF PROCEDURE: March 22, 2017, INDICATION : Chest pain and shortness of breath CARDIAC RISK FACTORS: Hypertension RESTING EKG: Sinus rhythm, LVH with secondary ST-T wave changes STRESS EKG: No significant changes noted with LexiScan bolus REASON FOR TERMINATION: Protocol. PROCEDURE REPORT: Baseline heart rate 69 beats per minute with blood pressure of 108/59. Patient had no significant complaints. Heart rate at 2 minutes post bolus 79 with a blood pressure of 91/53. 3 minutes post bolus heart rate 73 with blood pressure of 97/54. No significant EKG changes were noted. Patient had no significant complaints during the procedure or postprocedure. Patient injected with Aminophyllin 75 mg at 3 minutes or later after Lexiscan bolus. CONCLUSIONS: Normal EKG and hemodynamic response to IV LexiScan. NUCLEAR DATA: At rest the patient was given 9.09 millicuries of technetium 99 sestamibi injected intravenously. As per protocol rest gated SPECT images were obtained. On day of stress test, the patient was given intravenous LexiScan at a dose of 0.4 mg in 5 mL intravenously, followed by flush with normal saline. Subsequently the stress dose of 29.8 millicuries of technetium 99 sestamibi was injected intravenously. As per protocol stress gated images were obtained. NUCLEAR INTERPRETATION: Both raw and processed data were used for interpretation. Visual, qualitative, computer-generated quantitative data was used. There was good myocardial uptake of technetium compound. Motion artifact and soft tissue attenuations were noted. Increased visceral uptake was noted. No definitive areas of transient perfusion defect noted, No definitive areas of fixed perfusion defect or scars noted, except for a small area of decreased uptake in the LV apex most likely related to normal apical thinning but cannot rule out a mild fixed defect involving the LV apex.. EKG gated imaging showed LV EF at 27 %, rest and stress gated EF similar visually. T. I D. ratio was 1.27. Lung heart ratio noted to be within normal limits 0.40. No significant extracardiac and abnormal radiotracer activities were noted. RV free wall uptake was noted to be WNL. IMPRESSION: Also refer to comments under nuclear interpretation. Also test results needs to be interpreted in the context of pretest probability. 1. No definitive areas of transient perfusion defect noted. 2. There is no definitive scintigraphic evidence of myocardial infarction/ scar. Small area of decreased uptake noted in the LV apex most likely related to normal apical thinning but cannot rule out a mild scar. 3. EKG gated imaging shows left ventricular ejection fraction of approx. 27 %. 4. Clinical correlation requested as occasionally single vessel disease or balanced ischemia could be missed. In approximately 10% of the cases Lexiscan may not cause adequate vasodilatory stress. RECOMMENDATIONS: Aggressive risk factor modification and medical management. Further evaluation may be needed if continued symptoms or other high risk indicators are noted on clinical evaluation. Close cardiology follow-up is also recommended. Clinical correlation with echocardiogram derived ejection fraction. Inability to exercise by itself can lead to increased cardiovascular event risks. Consider cardiology consultation and or follow-up if clinically indicated. I am available for cardiology evaluation and consultation if requested by the sexologist, unless patient already has a airway traffic controller. WILBERTO
--- NOTE | 2017-03-22 19:17 | PDOC PROGRESS REPORT ---
Subjective Progress Note for:: 03/22/17 Subjective:: Patient complains of shortness of breath and chest pain off and on Review of system all organ systems evaluated and negative except in subjective All significant laboratories and diagnostics have been reviewed Reason For Visit: CHF CHEST PAIN WITH EKG CHANGES Physical Exam Vital Signs: Temp Pulse Resp BP Pulse Ox 97.9 F 67 20 118/68 100 03/22/17 15:00 03/22/17 15:00 03/22/17 15:00 03/22/17 15:00 03/22/17 15:00 Intake & Output 03/21/17 03/22/17 03/23/17 06:59 06:59 06:59 Intake Total 343 1182 1620 Output Total 0 4450 900 Balance 343 -4958 720 Weight 96.4 kg 92.5 kg General appearance: PRESENT: no acute distress, well-developed Head exam: PRESENT: atraumatic, normocephalic Eye exam: PRESENT: EOMI, PERRLA Ear exam: PRESENT: normal external ear exam Mouth exam: PRESENT: moist Neck exam: PRESENT: full ROM. ABSENT: JVD, lymphadenopathy, tenderness Respiratory exam: PRESENT: clear to auscultation kenyatta Cardiovascular exam: PRESENT: RRR. ABSENT: diastolic murmur, systolic murmur Vascular exam: PRESENT: normal capillary refill GI/Abdominal exam: PRESENT: normal bowel sounds, soft. ABSENT: tenderness Extremities exam: PRESENT: full ROM Musculoskeletal exam: PRESENT: ambulatory, full ROM Neurological exam: PRESENT: alert, awake, oriented to person, oriented to place , oriented to time, oriented to situation, CN II-XII grossly intact Psychiatric exam: PRESENT: appropriate affect, normal mood Skin exam: PRESENT: intact, normal color Results Laboratory Results: 03/21/17 03/21/17 06:38 06:38 Creatine Kinase 36 L CK-MB (CK-2) 0.42 Troponin I 0.051 Impressions: Chest X-Ray 03/20/17 17:59 IMPRESSION: No significant interval change. Persistent bibasilar densities as noted above. Other findings as noted above Chest/Abdomen CTA 03/20/17 19:29 IMPRESSION: 1. Chronic lung changes. Stable appearance compared to last year. 2. No evidence of pulmonary embolus or acute aortic disease. Assessment & Plan - Diagnosis (1) Anemia in chronic kidney disease (CKD) Is this a current diagnosis for this admission?: Yes Plan: stable (2) Congestive heart failure Qualifiers: Congestive heart failure type: combined Congestive heart failure chronicity : acute on chronic Qualified Code(s): I50.43 - Acute on chronic combined systolic (congestive) and diastolic (congestive) heart failure Is this a current diagnosis for this admission?: Yes Plan: Blood pressure control and fluid removal via dialysis (3) End stage renal failure on dialysis Is this a current diagnosis for this admission?: Yes Plan: Continue dialysis as scheduled (4) Hypertension Is this a current diagnosis for this admission?: Yes Plan: Continue present tx - Time Time Spent with patient: 15-24 minutes Medications reviewed and adjusted accordingly: Yes Anticipated discharge: Home Within: within 24 hours - Inpatient Certification Based on my medical assessment, after consideration of the patient's comorbidities, presenting symptoms, or acuity I expect that the services needed warrant INPATIENT care.: Yes I certify that my determination is in accordance with my understanding of Medicare's requirements for reasonable and necessary INPATIENT services [42 CFR 412.3e].: Yes Medical Necessity: Need Close Monitoring Due to Risk of Patient Decompensation
[2017-03-23] MEDS ORDERED: NORMAL SALINE 1000 ML 1,000 ML IV PRN (05:00)
[2017-03-23] MEDS: HEPARIN SOD (PORCINE) 5,000 UNIT/ML 1 ML SYRINGE SUBCUT SCH ×3 (05:51→22:01)
[2017-03-23 06:29] LABS: ABSOLUTE EOSINOPHILS # (AUTO) 0.1 10^3/uL (0.0-0.6); ABSOLUTE LYMPHOCYTES (AUTO) 1.2 10^3/uL (0.5-4.7); ABSOLUTE MONOCYTES (AUTO) 0.6 10^3/uL (0.1-1.4); ABSOLUTE NEUT (AUTO) 2.7 10^3/uL (1.7-8.2); BASOPHILS % (AUTO) 0.8 % (0-2); HEMATOCRIT 24.5 % (37.9-51.0); HEMOGLOBIN 8.4 g/dL (13.5-17.0); LYMPHOCYTES % (AUTO) 25.6 % (13-45); MEAN CORPUSCULAR HGB CONC 34.3 g/dL (32.0-36.0); MEAN CORPUSCULAR VOLUME 94 fl (80-97); MONOCYTES % (AUTO) 13.2 % (3-13); PLATELET COUNT 134 10^3/uL (150-450); RED BLOOD COUNT 2.63 10^6/uL (4.35-5.55); RED CELL DISTRIBUTION WIDTH 13.4 % (11.5-14.0); SEGMENTED NEUTROPHILS % (AUTO) 57.4 % (42-78); TOTAL CELLS COUNTED % (AUTO) 100 %; WHITE BLOOD COUNT 4.7 10^3/uL (4.0-10.5)
[2017-03-23 06:52] LABS: ANION GAP 13 (5-19); BLOOD UREA NITROGEN 45 mg/dL (7-20); CALCIUM 9.3 mg/dL (8.4-10.2); CARBON DIOXIDE 25 mmol/L (22-30); CHLORIDE 98 mmol/L (98-107); GLUCOSE 89 mg/dL (75-110); POTASSIUM 4.5 mmol/L (3.6-5.0); SODIUM 135.6 mmol/L (137-145)
[2017-03-23] MEDS: SEVELAMER HCL 400 MG TABLET PO SCH ×3 (07:58→17:21)
--- NOTE | 2017-03-23 15:30 | PDOC PROGRESS REPORT ---
Subjective Progress Note for:: 03/23/17 Subjective:: I saw the patient during dialysis at around 8:38 AM this morning. He looks much better. He confirms that he is breathing better and is able to sleep for the last couple of days. Although he has not been able to lay flat, he is able to recline a little bit and sleep for the last couple days. He had a Cardiolite stress test yesterday and came out to be normal. His echocardiogram also just showed mildly reduced systolic function and grade 2/4 diastolic dysfunction without any pericardial effusion. He looks brighter and was smiling earlier this morning during dialysis treatment. However I was told that he had an episode of dizziness postdialysis. The hospital was informed me that patient is very concerned about current condition. However all the tests came out to be good as workup for his shortness of breath. Reason For Visit: ESRD Physical Exam Vital Signs: Temp Pulse Resp BP Pulse Ox 98.2 F 79 18 117/57 L 95 03/23/17 08:04 03/23/17 14:00 03/23/17 08:04 03/23/17 08:04 03/23/17 08:04 Intake & Output 03/22/17 03/23/17 03/24/17 06:59 06:59 06:59 Intake Total 1182 2122 Output Total 4450 1350 3000 Balance -3268 772 -3000 Weight 92.5 kg 94.9 kg Vitals during dialysis: Blood pressure 132/76, heart rate of 65, blood flow rate of 450 more prominent, dialysate flow rate of 800 mL/min. Exam: General appearance: PRESENT: no acute distress, cooperative, well-developed, well-nourished Head exam: PRESENT: atraumatic, normocephalic Eye exam: PRESENT: conjunctiva pale, PERRLA. ABSENT: scleral icterus Neck exam: ABSENT: JVD Respiratory exam: PRESENT: Normal breath sounds. Improved from 2 days ago. ABSENT: crackles, rales, rhonchi, unlabored, wheezes Cardiovascular exam: PRESENT: Regular rate rhythm -+S1, +S2. ABSENT: diastolic murmur, systolic murmur GI/Abdominal exam: PRESENT: normal bowel sounds, soft. ABSENT: guarding, mass, tenderness Extremities exam: ABSENT: No edema Neurological exam: PRESENT: alert, awake, oriented to person, place and time. Skin exam: PRESENT: dry, warm, Results Laboratory Results: 03/23/17 05:07 03/23/17 05:07 03/23/17 03/23/17 05:07 05:07 WBC 4.7 RBC 2.63 L Hgb 8.4 L Hct 24.5 L MCV 94 MCH 32.0 MCHC 34.3 RDW 13.4 Plt Count 134 L Seg Neutrophils % 57.4 Lymphocytes % 25.6 Monocytes % 13.2 H Eosinophils % 3.0 Basophils % 0.8 Absolute Neutrophils 2.7 Absolute Lymphocytes 1.2 Absolute Monocytes 0.6 Absolute Eosinophils 0.1 Absolute Basophils 0.0 Sodium 135.6 L Potassium 4.5 Chloride 98 Carbon Dioxide 25 Anion Gap 13 BUN 45 H Creatinine 6.53 H Est GFR ( Amer) 10 L Est GFR (Non-Af Amer) 8 L Glucose 89 Calcium 9.3 03/21/17 03/21/17 06:38 06:38 Creatine Kinase 36 L CK-MB (CK-2) 0.42 Troponin I 0.051 Impressions: Chest X-Ray 03/20/17 17:59 IMPRESSION: No significant interval change. Persistent bibasilar densities as noted above. Other findings as noted above Chest/Abdomen CTA 03/20/17 19:29 IMPRESSION: 1. Chronic lung changes. Stable appearance compared to last year. 2. No evidence of pulmonary embolus or acute aortic disease. Assessment & Plan - Diagnosis (1) End stage renal failure on dialysis Is this a current diagnosis for this admission?: Yes Plan: We did dialysis today for 3 hours, using the patient's AV fistula, with 2 potassium bath, blood flow rate of 450 mL per minute, dialysate flow rate of 800 mL per minute, ultrafiltration 2-3 L as tolerated, no heparin and patient cannot have Procrit since he is allergic to it. Patient was monitored throughout dialysis. (2) Anemia in chronic kidney disease (CKD) Is this a current diagnosis for this admission?: Yes Plan: Patient is not being given any Epogen or Procrit because he is allergic to it. However he can receive IV iron if needed. In the past we needed to do blood transfusion if necessary. (3) Orthopnea Is this a current diagnosis for this admission?: Yes Plan: His Cardiolite stress test is normal. Echocardiogram showed mildly depressed systolic function and grade 2/4 diastolic dysfunction. Although the chest x- ray did not show much congestion and fluid overload patient seems to have improved after hemodialysis on Sunday getting ultrafiltration of 3900 mL. It is possible that he has a little bit more pulmonary congestion than can be detected by x-ray. We are going to adjust the patient's dry weight at [facility] depending on his postdialysis weight today. This will be his new dry weight. (4) Bilateral pleural effusion Is this a current diagnosis for this admission?: Yes Plan: This is minimal and small and unchanged from previous chest x-ray. (5) Hypertension Is this a current diagnosis for this admission?: Yes (6) Frequent unifocal PVCs Is this a current diagnosis for this admission?: Yes - Notes Notes: From nephrology standpoint I think he can be discharged home safely today after dialysis. - Time Time with patient: 15-25 minutes
[2017-03-23] MEDS ORDERED: LORAZEPAM 0.5 MG TABLET PO PRN (16:21)
--- NOTE | 2017-03-23 16:27 | PDOC PROGRESS REPORT ---
Subjective Progress Note for:: 03/23/17 Subjective:: Patient complains of shortness of breath and chest pain off and on after he came from dialysis. Review of system all organ systems evaluated and negative except in subjective All significant laboratories and diagnostics have been reviewed Reason For Visit: CHF CHEST PAIN WITH EKG CHANGES Physical Exam Vital Signs: Temp Pulse Resp BP Pulse Ox 98.2 F 79 18 117/57 L 95 03/23/17 08:04 03/23/17 14:00 03/23/17 08:04 03/23/17 08:04 03/23/17 08:04 Intake & Output 03/22/17 03/23/17 03/24/17 06:59 06:59 06:59 Intake Total 1182 2122 Output Total 4450 1350 3000 Balance -3268 772 -3000 Weight 92.5 kg 94.9 kg General appearance: PRESENT: no acute distress, cooperative, obese Head exam: PRESENT: atraumatic, normocephalic Eye exam: PRESENT: EOMI, PERRLA Ear exam: PRESENT: normal external ear exam Mouth exam: PRESENT: moist Neck exam: PRESENT: full ROM. ABSENT: JVD, lymphadenopathy Respiratory exam: PRESENT: clear to auscultation kenyatta Cardiovascular exam: PRESENT: RRR. ABSENT: diastolic murmur, systolic murmur Vascular exam: PRESENT: normal capillary refill GI/Abdominal exam: PRESENT: normal bowel sounds, soft. ABSENT: tenderness Extremities exam: PRESENT: full ROM. ABSENT: joint swelling, pedal edema Musculoskeletal exam: PRESENT: ambulatory Neurological exam: PRESENT: alert, awake, oriented to person, oriented to place , oriented to time, oriented to situation, CN II-XII grossly intact Psychiatric exam: PRESENT: anxious Skin exam: PRESENT: normal color Results Laboratory Results: 03/23/17 05:07 03/23/17 05:07 03/23/17 03/23/17 05:07 05:07 WBC 4.7 RBC 2.63 L Hgb 8.4 L Hct 24.5 L MCV 94 MCH 32.0 MCHC 34.3 RDW 13.4 Plt Count 134 L Seg Neutrophils % 57.4 Lymphocytes % 25.6 Monocytes % 13.2 H Eosinophils % 3.0 Basophils % 0.8 Absolute Neutrophils 2.7 Absolute Lymphocytes 1.2 Absolute Monocytes 0.6 Absolute Eosinophils 0.1 Absolute Basophils 0.0 Sodium 135.6 L Potassium 4.5 Chloride 98 Carbon Dioxide 25 Anion Gap 13 BUN 45 H Creatinine 6.53 H Est GFR ( Amer) 10 L Est GFR (Non-Af Amer) 8 L Glucose 89 Calcium 9.3 03/21/17 03/21/17 06:38 06:38 Creatine Kinase 36 L CK-MB (CK-2) 0.42 Troponin I 0.051 Impressions: Chest X-Ray 03/20/17 17:59 IMPRESSION: No significant interval change. Persistent bibasilar densities as noted above. Other findings as noted above Chest/Abdomen CTA 03/20/17 19:29 IMPRESSION: 1. Chronic lung changes. Stable appearance compared to last year. 2. No evidence of pulmonary embolus or acute aortic disease. Assessment & Plan - Diagnosis (1) Anemia in chronic kidney disease (CKD) Is this a current diagnosis for this admission?: Yes Plan: stable (2) Congestive heart failure Qualifiers: Congestive heart failure type: combined Congestive heart failure chronicity : acute on chronic Qualified Code(s): I50.43 - Acute on chronic combined systolic (congestive) and diastolic (congestive) heart failure Is this a current diagnosis for this admission?: Yes Plan: Blood pressure control and fluid removal via dialysis (3) End stage renal failure on dialysis Is this a current diagnosis for this admission?: Yes Plan: Continue dialysis as scheduled. Talk to Dr. Butler about the problems that patient is facing due to fluid buildup and the complaint of weakness and chest pressure after having dialysis today. Will hold of discharge. Patient will be placed on Ativan and follow up response (4) Hypertension Qualifiers: Hypertension type: essential hypertension Qualified Code(s): I10 - Essential (primary) hypertension Is this a current diagnosis for this admission?: Yes Plan: Discontinue metoprolol short acting and placed on Toprol-XL. - Time Time Spent with patient: 15-24 minutes Medications reviewed and adjusted accordingly: Yes Anticipated discharge: Home Within: within 24 hours - Inpatient Certification Based on my medical assessment, after consideration of the patient's comorbidities, presenting symptoms, or acuity I expect that the services needed warrant INPATIENT care.: Yes I certify that my determination is in accordance with my understanding of Medicare's requirements for reasonable and necessary INPATIENT services [42 CFR 412.3e].: Yes Medical Necessity: Need Close Monitoring Due to Risk of Patient Decompensation
[2017-03-23] MEDS: AMLODIPINE BESYLATE 2.5 MG TABLET PO SCH (17:13)
[2017-03-23] MEDS: FLUTICASONE NASAL SPRAY 50 MCG/SPRY 120 SPRAY/16 GM NASL SCH ×2 (17:13→22:02)
[2017-03-23] MEDS: FOLIC ACID/VITAMIN B COMP W-C CAPSULE PO SCH (17:13)
[2017-03-23] MEDS: NITROGLYCERIN 5 MG (0.2 MG/HR) PATCH.TD24 TD SCH (17:13)
[2017-03-23] MEDS: DOCUSATE SODIUM 100 MG CAPSULE PO SCH (17:13)
[2017-03-23] MEDS: SENNOSIDES/DOCUSATE 8.6-50 MG 1 EACH TABLET PO SCH (17:13)
[2017-03-23] MEDS: ASPIRIN 81 MG TABLET, ENT COATED PO SCH (17:13)
[2017-03-24] MEDS: HEPARIN SOD (PORCINE) 5,000 UNIT/ML 1 ML SYRINGE SUBCUT SCH (05:34)
[2017-03-24] MEDS: SEVELAMER HCL 400 MG TABLET PO SCH (08:38)
[2017-03-24] MEDS: FLUTICASONE NASAL SPRAY 50 MCG/SPRY 120 SPRAY/16 GM NASL SCH (09:18)
[2017-03-24] MEDS: DOCUSATE SODIUM 100 MG CAPSULE PO SCH (09:18)
[2017-03-24] MEDS: AMLODIPINE BESYLATE 2.5 MG TABLET PO SCH (09:18)
[2017-03-24] MEDS: FOLIC ACID/VITAMIN B COMP W-C CAPSULE PO SCH (09:20)
[2017-03-24] MEDS: SENNOSIDES/DOCUSATE 8.6-50 MG 1 EACH TABLET PO SCH (09:20)
[2017-03-24] MEDS: ASPIRIN 81 MG TABLET, ENT COATED PO SCH (09:21)
[2017-03-24] MEDS: NITROGLYCERIN 5 MG (0.2 MG/HR) PATCH.TD24 TD SCH (09:21)
[2017-03-24 09:38] VITALS: BP 118/68
[2017-03-24] MEDS ORDERED: METOPROLOL SUCCINATE 50 MG TAB.SR.24H PO SCH (10:00)
--- NOTE | 2017-03-24 16:06 | PDOC DISCHARGE SUMMARY ---
General - Admit/Disc Date/PCP Admission Date/Primary Care Provider: 03/21/17 00:14 XAVIER GALLAGHER MD Discharge Date: 03/24/17 - Discharge Diagnosis (1) Congestive heart failure Is this a current diagnosis for this admission?: Yes (2) Chest pain Is this a current diagnosis for this admission?: Yes (3) Anemia in chronic kidney disease (CKD) Is this a current diagnosis for this admission?: Yes (4) End stage renal failure on dialysis Is this a current diagnosis for this admission?: Yes (5) Hypertension Is this a current diagnosis for this admission?: Yes - Additional Information Resuscitation Status: Full Code Discharge Diet: Cardiac Discharge Activity: Activity As Tolerated, Balance Activity w/Rest, Weigh Daily Prescriptions: Metoprolol Succinate [Toprol Xl 50 mg Tab.sr] 50 mg PO DAILY #30 tab.sr.24h Nitroglycerin [Nitro-Dur 5 mg (0.2 mg/Hr) Transdermal Patch] 1 each TD DAILY # 30 patch.td24 Home Medications: Amlodipine Besylate [Norvasc 2.5 mg Tablet] 2.5 mg PO DAILY 03/21/17 Lactulose [Enulose] 30 ml PO Q8HP PRN 03/21/17 Sevelamer Carbonate [Renvela] 1,600 mg PO MEALS 03/21/17 Aspirin [Ecotrin 81 mg EC Tablet] 81 mg PO DAILY tabec 03/23/17 Metoprolol Succinate [Toprol Xl 50 mg Tab.sr] 50 mg PO DAILY #30 tab.sr.24h 04/08 Nitroglycerin [Nitro-Dur 5 mg (0.2 mg/Hr) Transdermal Patch] 1 each TD DAILY # 30 patch.td24 03/23/17 History of Present Illness History of Present Illness: SARAH BETH LIMA JR is a 76 year old is a 76 year old male with a past medical history of multiple myeloma, systolic heart failure ejection fraction 40%, anemia and nonoliguric renal failure on hemodialysis with Dr. Butler Sunday, Sunday. Patient presents with 5 days of shortness of breath with deep breathing. Had been having chest and abdominal pain which is intermittent, pressure-like, nonradiating of 2 out of 5 intensity becoming increasingly frequent. He denied palpitations, nausea vomiting or diaphoresis. EKG was notable for long QT interval and frequent PVCs, cardiac enzymes and CTA chest are negative. He was referred to the hospitalist for observation. Patient denied previous episode, new medications or current pain Hospital Course Hospital Course: Patient was admitted to telemetry unit. There were no cardiac dysrhythmia except for occasional PVCs. Troponin was trended and negative. Patient underwent nuclear stress test which was negative. While in-house patient went to dialysis. Unfortunately afterwards he began to experience chest pressure and shortness of breath. Patient also complained of generalized weakness. Discharge was halted. All symptoms improved overnight and he felt good enough as to being able to go home. We discussed his situation with Dr. Butler. Patient sees her on Wednesdays on regular basis. Patient and had been encouraged as to discuss with Dr. Butler all concerns since some may relate to dialysis therapy. During this hospitalization metoprolol short acting was changed to Toprol-XL since patient does have an element of systolic and diastolic congestive heart failure. On admission he was patient placed on Nitropatch. Recommend primary care provider and Dr. Butler to follow up response on the outpatient setting. Since patient was stable prompted to discharge Physical Exam Vital Signs: Temp Pulse Resp BP Pulse Ox 98.3 F 82 20 112/69 93 03/24/17 04:17 03/24/17 04:17 03/24/17 04:17 03/24/17 04:17 03/24/17 04:17 Intake & Output 03/23/17 03/24/17 03/25/17 06:59 06:59 06:59 Intake Total 2122 746 Output Total 1350 3450 Balance 772 -2704 Weight 94.9 kg 91.9 kg General appearance: PRESENT: no acute distress, cooperative, obese Head exam: PRESENT: atraumatic, normocephalic Eye exam: PRESENT: conjunctiva pink, EOMI, PERRLA Ear exam: PRESENT: normal external ear exam Mouth exam: PRESENT: moist Neck exam: PRESENT: full ROM. ABSENT: JVD, lymphadenopathy, tenderness, thyromegaly Respiratory exam: PRESENT: clear to auscultation kenyatta Cardiovascular exam: PRESENT: RRR. ABSENT: diastolic murmur, systolic murmur Vascular exam: PRESENT: normal capillary refill GI/Abdominal exam: PRESENT: normal bowel sounds, soft. ABSENT: tenderness Extremities exam: PRESENT: full ROM. ABSENT: joint swelling, pedal edema Musculoskeletal exam: PRESENT: ambulatory Neurological exam: PRESENT: alert, awake, oriented to person, oriented to place , oriented to time, oriented to situation, CN II-XII grossly intact Psychiatric exam: PRESENT: appropriate affect, normal mood Skin exam: PRESENT: intact, normal color Results Laboratory Results: 03/23/17 05:07 03/23/17 05:07 03/21/17 03/21/17 06:38 06:38 Creatine Kinase 36 L CK-MB (CK-2) 0.42 Troponin I 0.051 Impressions: Chest X-Ray 03/20/17 17:59 IMPRESSION: No significant interval change. Persistent bibasilar densities as noted above. Other findings as noted above Chest/Abdomen CTA 03/20/17 19:29 IMPRESSION: 1. Chronic lung changes. Stable appearance compared to last year. 2. No evidence of pulmonary embolus or acute aortic disease. Plan Discharge Plan: Discharge home Time Spent: Less than 30 Minutes
== END 2017-03-24 10:36 | disposition home or self-care (01) | DRG 291 ==
LOC: ER 15:52 → EH 03-21 00:14 → OBSVTOIN 03-21 00:14 → 4W 03-21 03:45
PROVIDERS: ADMIT Internal Medicine; ATTEND Internal Medicine
PROC: 5A1D70Z Performance of Urinary Filtration, Intermittent, Less than 6 Hours Per Day (ICD-10-PCS; 2017-03-21)
PROC: 5A1D70Z Performance of Urinary Filtration, Intermittent, Less than 6 Hours Per Day (ICD-10-PCS; principal; 2017-03-23)
DX: I13.2 Hypertensive heart and chronic kidney disease with heart failure and with stage 5 chronic kidney disease, or end stage renal disease (principal); I50.43 Acute on chronic combined systolic (congestive) and diastolic (congestive) heart failure; N18.6 End stage renal disease; C90.00 Multiple myeloma not having achieved remission; Z94.84 Stem cells transplant status; Z99.2 Dependence on renal dialysis; D63.1 Anemia in chronic kidney disease; I49.3 Ventricular premature depolarization; K59.01 Slow transit constipation; Z79.899 Other long term (current) drug therapy; Z88.8 Allergy status to other drugs, medicaments and biological substances; I48.91 Unspecified atrial fibrillation; K21.9 Gastro-esophageal reflux disease without esophagitis; Z82.49 Family history of ischemic heart disease and other diseases of the circulatory system; Z82.3 Family history of stroke; Z88.0 Allergy status to penicillin
CPT/HCPCS: 36415; 71046; 71275; 78452; 80048; 80053; 80061; 82330; 82550; 82553; 83735; 83880; 84443; 84484; 85025; 85610; 93005; 93010; 93017; 93306; 96401; 99285; A9500; G0378; J0280; J1644; J2785; J3490; J9041; Q9969

== ENCOUNTER → 2017-06-01 | Outpatient (CLI) | payer MEDICARE ==
--- NOTE | 2017-06-01 11:30 | RADIOLOGY REPORT (SQ) ---
EXAM DESCRIPTION: CHEST 2 VIEWS COMPLETED DATE/TIME: 06/01/2017 11:18 am REASON FOR STUDY: PLEURAL EFFUSION (J90), SOB (R06.02) COMPARISON: CT angio chest 03/20/2017, CT chest 03/03/2016 Chest films 03/20/2017, 03/16/2017, 06/13/2016 EXAM PARAMETERS: NUMBER OF VIEWS: two views TECHNIQUE: Digital Frontal and Lateral radiographic views of the chest acquired. RADIATION DOSE: NA LIMITATIONS: none FINDINGS: LUNGS AND PLEURA: Chronic blunting of the lateral and posterior costophrenic sulci. This is stable compared to 06/13/2016 chest films. Stable volume loss and scarring in the posterior right lower lobe, unchanged from prior studies. No fluffy alveolar infiltrates worrisome for pulmonary edema or pneumonia. No pneumothorax. MEDIASTINUM AND HILAR STRUCTURES: No masses or contour abnormalities. HEART AND VASCULAR STRUCTURES: Heart normal size. No evidence for failure. BONES: No acute findings. HARDWARE: None in the chest. OTHER: No other significant finding. IMPRESSION: Chronic appearing right lower lobe collapse and bilateral pleural fluid/ pleural thicken ing. This is similar compared to 03/03/2016 TECHNICAL DOCUMENTATION: JOB ID: [id number] [employer]- All Rights Reserved Reading location - IP/workstation name: [email or web address]
== END ==
LOC: RAD 10:55
PROVIDERS: ATTEND Internal Medicine Nephrology
DX: J90 Pleural effusion, not elsewhere classified (principal); R06.02 Shortness of breath
CPT/HCPCS: 71046

== ENCOUNTER 2018-02-23 07:32 | Day surgery (SDC) | payer MEDICARE ==
[2018-02-22 15:14] LABS: HEMATOCRIT 24.5 % (37.9-51.0); HEMOGLOBIN 8.5 g/dL (13.5-17.0); MEAN CORPUSCULAR HEMOGLOBIN 31.5 pg (27.0-33.4); MEAN CORPUSCULAR HGB CONC 34.9 g/dL (32.0-36.0); MEAN CORPUSCULAR VOLUME 90 fl (80-97); PLATELET COUNT 170 10^3/uL (150-450); RED BLOOD COUNT 2.72 10^6/uL (4.35-5.55); RED CELL DISTRIBUTION WIDTH 14.8 % (11.5-14.0)
[~2018-02-23 07:32] MED LIST changes: -NORMAL SALINE 1000 ML 1,000 ML IV PRN
[2018-02-23] MEDS ORDERED: NORMAL SALINE 250 ML IV PRN (10:10)
[2018-02-23 17:16] VITALS: BP 158/84
== END 2018-02-23 17:47 | disposition home or self-care (01) ==
LOC: 2N 07:32 → II 07:32
PROVIDERS: ATTEND Internal Medicine Hematology & Oncology
DX: C90.02 Multiple myeloma in relapse (principal); D64.9 Anemia, unspecified; Z88.8 Allergy status to other drugs, medicaments and biological substances; Z88.5 Allergy status to narcotic agent
CPT/HCPCS: 86900; 86901; 36430; 86850; 86920; P9016; A9270 ×2; J1940

== ENCOUNTER 2018-06-29 01:30 | Emergency (ER) | payer MEDICARE ==
[2018-06-29] MEDS ORDERED: ASPIRIN 81 MG TABLET, CHEWABLE PO ONE (02:15)
[2018-06-29] MEDS ORDERED: ALBUTEROL SULFATE 0.083% NEB 2.5 MG/3 ML AMPUL NEB ONE (02:29)
[2018-06-29 02:33] LABS: ABSOLUTE EOSINOPHILS # (AUTO) 0.1 10^3/uL (0.0-0.6); ABSOLUTE LYMPHOCYTES (AUTO) 0.8 10^3/uL (0.5-4.7); ABSOLUTE MONOCYTES (AUTO) 0.6 10^3/uL (0.1-1.4); ABSOLUTE NEUT (AUTO) 3.7 10^3/uL (1.7-8.2); BASOPHILS % (AUTO) 0.5 % (0-2); HEMATOCRIT 22.7 % (37.9-51.0); LYMPHOCYTES % (AUTO) 14.6 % (13-45); MEAN CORPUSCULAR HEMOGLOBIN 31.6 pg (27.0-33.4); MEAN CORPUSCULAR HGB CONC 33.4 g/dL (32.0-36.0); MEAN CORPUSCULAR VOLUME 95 fl (80-97); MONOCYTES % (AUTO) 11.2 % (3-13); PLATELET COUNT 118 10^3/uL (150-450); RED BLOOD COUNT 2.39 10^6/uL (4.35-5.55); RED CELL DISTRIBUTION WIDTH 13.8 % (11.5-14.0); SEGMENTED NEUTROPHILS % (AUTO) 71.7 % (42-78); TOTAL CELLS COUNTED % (AUTO) 100 %; WHITE BLOOD COUNT 5.1 10^3/uL (4.0-10.5)
[2018-06-29 02:34] LABS: HEMOGLOBIN 7.6 g/dL (13.5-17.0)
[2018-06-29 02:50] LABS: ALANINE AMINOTRANSFERASE 25 U/L (21-72); ALBUMIN 3.9 g/dL (3.5-5.0); ALKALINE PHOSPHATASE 71 U/L (38-126); ANION GAP 13 (5-19); ASPARTATE AMINO TRANSFERASE 17 U/L (17-59); BILIRUBIN,DIRECT 0.6 mg/dL (0.0-0.4); BILIRUBIN,TOTAL 0.6 mg/dL (0.2-1.3); BLOOD UREA NITROGEN 30 mg/dL (7-20); CALCIUM 8.9 mg/dL (8.4-10.2); CARBON DIOXIDE 28 mmol/L (22-30); CHLORIDE 98 mmol/L (98-107); CREATINE KINASE 54 U/L (55-170); GLUCOSE 117 mg/dL (75-110); POTASSIUM 4.4 mmol/L (3.6-5.0); SODIUM 138.7 mmol/L (137-145); TOTAL PROTEIN 6.7 g/dL (6.3-8.2)
--- NOTE | 2018-06-29 02:59 | RADIOLOGY REPORT (SQ) ---
EXAM DESCRIPTION: XR CHEST 1 VIEW COMPLETED DATE/TME: 06/29/2018 02:15 CLINICAL HISTORY: 77 years Male, SOB, hypoxia COMPARISON: June 17, 2018 NUMBER OF VIEWS/TECHNIQUE: 1/AP FINDINGS: Moderate patchy opacity-effusion of the right lower hemithorax, small opacity-effusion of the left lung base, normal cardiac silhouette size. No pneumothorax. Stable bony thorax. IMPRESSION: No significant change.
[2018-06-29 03:02] LABS: CREATINE KINASE MB 0.77 ng/mL (<4.55)
[2018-06-29 03:17] LABS: TROPONIN I 0.118 ng/mL
[2018-06-29] MEDS ORDERED: FUROSEMIDE INJ/PF 40 MG/4 ML SDV IV ONE (04:21)
[2018-06-29] MEDS ORDERED: NITROGLYCERIN/D5W 50 MG/250 ML RTUINJ IV PRN (04:23)
[2018-06-29] MEDS ORDERED: NITROGLYCERIN 2% OINTMENT 1 GM PACKET TP ONE (04:43)
[2018-06-29] MEDS ORDERED: BUMETANIDE INJ/PF 1 MG/4 ML SDV IV ONE ×2 (04:44→05:15)
--- NOTE | 2018-06-29 07:27 | ER Document Report ---
Entered by CLINTON MCKEON SCRIBE 06/29/18 0231 Acting as scribe for:MITCH PENA DO ED Respiratory Problem - General Chief Complaint: Shortness Of Breath Stated Complaint: SHORTNESS OF BREATH Time Seen by Provider: 06/29/18 02:15 Primary Care Provider: SIRISHA SAAVEDRA PA-C [ALLIED HEALTH PROFESSIONAL] - Follow up as needed Notes: 77-year-old male with multiple myeloma who presents to the emergency department today with complaints of nasal congestion, cough, and shortness of breath. Patient states he has had these symptoms for the last x2-3 weeks but it became much worse over the last x3 days. Patient is a Sunday dialysis patient and he states that his cough had been getting better after fluid removal in dialysis but today it did not help his cough. at bedside states she noticed that the patient had some blood spatter on the mirror so she believes he has been bringing up blood with his cough. Patient had a chest x-ray performed 3 to 4 days ago and was prescribed a Z-Warren but he has not yet filled this prescription. Patient states he has had chills and fevers but denies any diarrhea or abdominal pain. Also denies any chest pain. Renal failure is from his multiple myeloma. TRAVEL OUTSIDE OF THE [place] IN LAST 30 DAYS: No - Related Data Allergies/Adverse Reactions: darbepoetin jeannie [From Aranesp (in polysorbate)] Allergy (Verified 05/23/16 11:43) epoetin jeannie [From Epogen] Allergy (Verified 05/23/16 11:43) hydromorphone [From Dilaudid] Allergy (Verified 05/23/16 11:43) Penicillins Allergy (Verified 12/14/14 09:01) Rash Past Medical History - General Information source: Patient - Social History Smoking Status: Former Smoker Cigarette use (# per day): No Frequency of alcohol use: None Drug Abuse: None Lives with: Family Family History: Reviewed & Not Pertinent, Hypertension - Past Medical History Cardiac Medical History: Reports: Hx Atrial Fibrillation, Hx Hypertension Pulmonary Medical History: Reports: Hx Pneumonia - hx of year and a half ago Renal/ Medical History: Reports: Hx End Stage Renal Disease, Hx Hemodialysis GI Medical History: Reports: Hx Gastroesophageal Reflux Disease Past Surgical History: Reports: Hx Tonsillectomy, Hx Vascular Surgery - AV fistula, Other - Stem cell transplant at [place], [place]; bone biopsy 2010 - Immunizations Hx Diphtheria, Pertussis, Tetanus Vaccination: No Hx Pneumococcal Vaccination: 11/19/14 Review of Systems - Review of Systems Constitutional: See HPI, Chills, Fever EENT: See HPI, Nose congestion Cardiovascular: No symptoms reported Respiratory: See HPI, Cough, Short of breath, Wheezing Gastrointestinal: denies: Abdominal pain, Diarrhea Genitourinary: No symptoms reported Male Genitourinary: No symptoms reported Musculoskeletal: No symptoms reported Skin: No symptoms reported Hematologic/Lymphatic: No symptoms reported Neurological/Psychological: No symptoms reported -: Yes All other systems reviewed and negative Physical Exam - Vital signs Vitals: Temp Pulse Resp BP Pulse Ox 98.9 F 110 H 26 H 123/85 97 06/29/18 01:53 06/29/18 01:53 06/29/18 01:53 06/29/18 01:53 06/29/18 01:53 Interpretation: Tachycardic, Tachypneic - Notes Notes: PHYSICAL EXAM GENERAL: Alert, interacts well. HEAD: Normocephalic, atraumatic. EYES: Pupils equal, round, and reactive to light. Extraocular movements intact. ENT: Oral mucosa moist, tongue midline. NECK: Full range of motion. Supple. Trachea midline. LUNGS: Trace expiratory wheezing in the left lower lobe, no rales or rhonchi. No respiratory distress. Wet cough. HEART: Tachycardic rate and regular rhythm. No murmurs, gallops, or rubs. Brisk capillary refill distally. ABDOMEN: Soft, non-tender. Non-distended. Bowel sounds present in all 4 quadrants. No guarding, rigidity, or rebound. EXTREMITIES: Moves all 4 extremities spontaneously. No edema, radial and dorsalis pedis pulses 2/4 bilaterally. No cyanosis. NEUROLOGICAL: Alert and oriented x3. Normal speech. Fistula in the left forearm with palpable thrill. PSYCH: Normal affect, normal mood. SKIN: Warm, dry, normal turgor. No rashes or lesions noted. No hair on legs. Course - Re-evaluation Re-evalutation: 06/29/18 07:24 CBC shows acute on chronic anemia, likely due to end-stage renal disease, CMP shows BUN of 30 and creatinine of 4.44 consistent with his history of end-stage renal disease on dialysis this, troponin is elevated at 0.118, after 4 hours it increased further to 0.265, proBNP is markedly elevated at 88,500. Chest x-ray is read as showing no significant change from prior with chronic scarring the bases however I do see some evidence of cephalization on this x-ray. EKG is nonischemic. I did call and discuss the patient with Dr. Francisco at [facility] for possible transfer for non-STEMI with CHF. He agrees to accept the patient in transfer, feels that this is less likely to be a non-STEMI and more likely to simply be elevated troponin related to the patient's renal failure. Recommends giving the patient 4 mg of Bumex and using Nitropaste on his chest rather than a nitro drip. Patient has output approximately 300 mL's of pale yellow urine after being given Bumex. Transport is on its way. Patient remains somewhat tachycardic, tachypnea is improving, continues to only require 2 L via nasal cannula to maintain oxygenation. Patient is stable for transport at this time. - Vital Signs Vital signs: Temp Pulse Resp BP Pulse Ox 99.2 F 110 H 26 H 146/91 H 100 06/29/18 05:27 06/29/18 01:53 06/29/18 07:01 06/29/18 07:01 06/29/18 07:01 - Laboratory Result Diagrams: 06/29/18 02:21 06/29/18 02:21 Laboratory results interpreted by me: 06/29/18 06/29/18 06/29/18 02:21 02:21 02:21 RBC 2.39 L Hgb 7.6 L Hct 22.7 L Plt Count 118 L BUN 30 H Creatinine 4.44 H Est GFR ( Amer) 16 L Est GFR (Non-Af Amer) 13 L Glucose 117 H Direct Bilirubin 0.6 H Creatine Kinase 54 L NT-Pro-B Natriuret Pep 70769 H - EKG Interpretation by Me Additional EKG results interpreted by me: 06/29/18 07:22 EKG shows sinus tachycardia at a rate of 112, frequent PVCs, left anterior hemiblock, LVH, no ST segment elevations or depressions, no T wave inversions per my interpretation. Discharge - Discharge Clinical Impression: End stage renal failure on dialysis, Elevated troponin Anemia in chronic kidney disease (CKD) Qualifiers: Chronic kidney disease stage: on chronic dialysis Qualified Code(s): N18.6 - End stage renal disease; D63.1 - Anemia in chronic kidney disease; Z99.2 - Dependence on renal dialysis Congestive heart failure Qualifiers: Heart failure type: unspecified Heart failure chronicity: acute Qualified Code(s): I50.9 - Heart failure, unspecified Condition: Fair Disposition: [facility] Referrals: SIRISHA SAAVEDRA PA-C [ALLIED HEALTH PROFESSIONAL] - Follow up as needed I personally performed the services described in the documentation, reviewed and edited the documentation which was dictated to the scribe in my presence, and it accurately records my words and actions.
--- NOTE | 2018-06-29 07:55 | EKG REPORT ---
SEVERITY:- ABNORMAL ECG - SINUS TACHYCARDIA VENTRICULAR BIGEMINY INCOMPLETE RBBB AND LAFB PROBABLE LEFT VENTRICULAR HYPERTROPHY : Confirmed by: Allyson Chow MD 29-Jun-2018 07:54:33
[2018-06-29 08:01] VITALS: BP 154/95
== END 2018-06-29 07:50 | disposition short-term general hospital (02) ==
LOC: ER 01:30
DX: I13.2 Hypertensive heart and chronic kidney disease with heart failure and with stage 5 chronic kidney disease, or end stage renal disease (principal); I50.9 Heart failure, unspecified; N18.6 End stage renal disease; Z99.2 Dependence on renal dialysis; D63.1 Anemia in chronic kidney disease; R79.89 Other specified abnormal findings of blood chemistry; R06.02 Shortness of breath; C90.00 Multiple myeloma not having achieved remission; R09.81 Nasal congestion; R05 Cough; R50.9 Fever, unspecified; Z87.891 Personal history of nicotine dependence; I10 Essential (primary) hypertension
CPT/HCPCS: 93005; 94640; 99285; 96374; 36415; 82553; 82550; 85025; 80053; 84484; 83880; 71045; 93010; A9270 ×2; J3490

== ENCOUNTER 2018-07-16 12:11 | Emergency (ER) | payer MEDICARE ==
--- NOTE | 2018-07-16 13:06 | ER Document Report ---
ED General - General Chief Complaint: Post Dialysis bleeding Stated Complaint: POSSIBLE BLEED Time Seen by Provider: 07/16/18 13:03 Primary Care Provider: LEYLA RAMIREZ MD [Primary Care Provider] - Follow up as needed Information source: Patient Notes: Well-appearing 77-year-old male who presents after dialysis yesterday with bleeding from the dialysis site. He denies any lightheadedness or dizziness. He denies any arm pain. He denies any chest pain, shortness of breath, calf pain or leg swelling. He has tried compresses and it is been a very slight mild "oozing". No recent replacement or instrumentation to the dialysis site. He did complete his dialysis yesterday. TRAVEL OUTSIDE OF THE [place] IN LAST 30 DAYS: No - Related Data Allergies/Adverse Reactions: darbepoetin jeannie [From Aranesp (in polysorbate)] Allergy (Verified 05/23/16 11:43) epoetin jeannie [From Epogen] Allergy (Verified 05/23/16 11:43) hydromorphone [From Dilaudid] Allergy (Verified 05/23/16 11:43) Penicillins Allergy (Verified 12/14/14 09:01) Rash Past Medical History - Social History Smoking Status: Unknown if Ever Smoked Family History: Reviewed & Not Pertinent, Hypertension - Past Medical History Cardiac Medical History: Reports: Hx Atrial Fibrillation, Hx Hypertension Denies: Hx Coronary Artery Disease, Hx Heart Attack Pulmonary Medical History: Reports: Hx Pneumonia - hx of year and a half ago Denies: Hx Asthma, Hx Bronchitis, Hx COPD Neurological Medical History: Denies: Hx Cerebrovascular Accident, Hx Seizures Renal/ Medical History: Reports: Hx End Stage Renal Disease, Hx Hemodialysis. Denies: Hx Peritoneal Dialysis - HEMO MWF GI Medical History: Reports: Hx Gastroesophageal Reflux Disease Musculoskeletal Medical History: Denies Hx Arthritis Past Surgical History: Reports: Hx Tonsillectomy, Hx Vascular Surgery - AV fistula, Other - Stem cell transplant at [place], [place]; bone biopsy 2010 - Immunizations Hx Diphtheria, Pertussis, Tetanus Vaccination: No Hx Pneumococcal Vaccination: 11/19/14 Physical Exam - Vital signs Vitals: Temp Pulse Resp BP Pulse Ox 97.6 F 56 L 16 132/59 H 98 07/16/18 12:30 07/16/18 12:30 07/16/18 12:30 07/16/18 12:30 07/16/18 12:30 Notes: Reviewed vital signs and nursing note as charted by RN. CONSTITUTIONAL: Alert and oriented and responds appropriately to questions. Well-appearing; well-nourished HEAD: Normocephalic; atraumatic EYES: Conjunctiva is not pale EXT: Patient has a small punctate chronically using bleed at the tip of the dialysis shunt site. No surrounding erythema or induration. Positive thrill and bruit. Patient denies any change in site of the dialysis fistula. Course - Re-evaluation Re-evalutation: 07/16/18 13:05 Given the above history and physical, with chronic oozing, with pressure being unsuccessful, I will apply a very small [id number] stitch the skin line surface. We will obtain a hemoglobin level and if this is unremarkable, and the patient's bleeding is hemostatic, patient will be discharged home. 07/16/18 13:17 1 [id number] suture with 5-0 Prolene was placed at the shunt bleeding site. Hemostasis was provided. - Vital Signs Vital signs: Temp Pulse Resp BP Pulse Ox 97.6 F 56 L 16 132/59 H 98 07/16/18 12:30 07/16/18 12:30 07/16/18 12:30 07/16/18 12:30 07/16/18 12:30 Procedures - Laceration/Wound Repair Left Arm Wound length (cm): 0.5 Wound's Depth, Shape: Superficial Wound Repaired With: Sutures Suture Size/Type: 5:0, Prolene Number of Sutures: 1 Post-procedure NV exam normal: Yes Complications: No Notes: 07/16/18 13:18 1 [id number] stitch applied Discharge - Discharge Clinical Impression: Complication of AV dialysis fistula Qualifiers: Encounter type: initial encounter Qualified Code(s): T82.9XXA - Unspecified complication of cardiac and vascular prosthetic device, implant and graft, initial encounter Condition: Good Disposition: HOME, SELF-CARE Additional Instructions: Come back immediately for any bleeding, lightheadedness or dizziness, weakness or numbness, or any other acute problems. Referrals: LEYLA RAMIREZ MD [Primary Care Provider] - Follow up as needed
[2018-07-16 14:55] LABS: INTERNATIONAL RATION (INR) 1.05; PROTHROMBIN TIME 14.3 SEC (11.4-15.4)
[2018-07-16 15:01] LABS: HEMATOCRIT 22.8 % (37.9-51.0); MEAN CORPUSCULAR HEMOGLOBIN 30.9 pg (27.0-33.4); MEAN CORPUSCULAR HGB CONC 32.6 g/dL (32.0-36.0); MEAN CORPUSCULAR VOLUME 95 fl (80-97); PLATELET COUNT 133 10^3/uL (150-450); RED CELL DISTRIBUTION WIDTH 13.9 % (11.5-14.0); WHITE BLOOD COUNT 4.8 10^3/uL (4.0-10.5)
[2018-07-16 15:03] LABS: HEMOGLOBIN 7.4 g/dL (13.5-17.0)
[2018-07-16 15:11] LABS: ALANINE AMINOTRANSFERASE 22 U/L (21-72); ALBUMIN 3.3 g/dL (3.5-5.0); ALKALINE PHOSPHATASE 59 U/L (38-126); ANION GAP 12 (5-19); ASPARTATE AMINO TRANSFERASE 17 U/L (17-59); BILIRUBIN,DIRECT 0.3 mg/dL (0.0-0.4); BILIRUBIN,TOTAL 0.3 mg/dL (0.2-1.3); BLOOD UREA NITROGEN 46 mg/dL (7-20); CALCIUM 8.9 mg/dL (8.4-10.2); CARBON DIOXIDE 27 mmol/L (22-30); CHLORIDE 94 mmol/L (98-107); GLUCOSE 88 mg/dL (75-110); POTASSIUM 4.8 mmol/L (3.6-5.0); SODIUM 132.5 mmol/L (137-145); TOTAL PROTEIN 5.9 g/dL (6.3-8.2)
[2018-07-16 15:54] VITALS: BP 149/63
== END 2018-07-16 16:03 | disposition home or self-care (01) ==
LOC: ER 12:11
DX: T82.838A Hemorrhage due to vascular prosthetic devices, implants and grafts, initial encounter (principal); Y84.1 Kidney dialysis as the cause of abnormal reaction of the patient, or of later complication, without mention of misadventure at the time of the procedure; I12.0 Hypertensive chronic kidney disease with stage 5 chronic kidney disease or end stage renal disease; N18.6 End stage renal disease; Z99.2 Dependence on renal dialysis; Z88.0 Allergy status to penicillin; Z88.6 Allergy status to analgesic agent
CPT/HCPCS: 36415; 80053; 85027; 85610; 99284

== ENCOUNTER 2018-08-07 11:02 | Emergency (ER) | payer MEDICARE ==
[2018-08-07] MEDS ORDERED: OXYCODONE-ACETAMINOPHEN 5-325 MG TABLET PO ONE (11:42)
[2018-08-07] MEDS ORDERED: PROMETHAZINE HCL 25 MG TABLET PO ONE (11:43)
[2018-08-07 11:58] LABS: ABSOLUTE EOSINOPHILS # (AUTO) 0.1 10^3/uL (0.0-0.6); ABSOLUTE LYMPHOCYTES (AUTO) 0.9 10^3/uL (0.5-4.7); ABSOLUTE MONOCYTES (AUTO) 0.5 10^3/uL (0.1-1.4); ABSOLUTE NEUT (AUTO) 2.3 10^3/uL (1.7-8.2); BASOPHILS % (AUTO) 0.6 % (0-2); EOSINOPHILS % (AUTO) 2.4 % (0-6); HEMATOCRIT 24.3 % (37.9-51.0); HEMOGLOBIN 8.2 g/dL (13.5-17.0); LYMPHOCYTES % (AUTO) 22.7 % (13-45); MEAN CORPUSCULAR HEMOGLOBIN 32.3 pg (27.0-33.4); MEAN CORPUSCULAR VOLUME 95 fl (80-97); MONOCYTES % (AUTO) 13.5 % (3-13); PLATELET COUNT 118 10^3/uL (150-450); RED BLOOD COUNT 2.56 10^6/uL (4.35-5.55); RED CELL DISTRIBUTION WIDTH 14.8 % (11.5-14.0); SEGMENTED NEUTROPHILS % (AUTO) 60.8 % (42-78); TOTAL CELLS COUNTED % (AUTO) 100 %; WHITE BLOOD COUNT 3.9 10^3/uL (4.0-10.5)
--- NOTE | 2018-08-07 12:11 | RADIOLOGY REPORT (SQ) ---
EXAM DESCRIPTION: CHEST SINGLE VIEW COMPLETED DATE/TIME: 08/07/2018 11:54 am REASON FOR STUDY: Right lateral rib pain, no trauma COMPARISON: 06/29/2018 NUMBER OF VIEWS: One view. TECHNIQUE: Single frontal radiographic image of the chest acquired. LIMITATIONS: Overlying support apparatus. FINDINGS: LUNGS AND PLEURA: Chronic blunting both costophrenic angles. Chronic airspace opacity rig ht lower lobe. No pneumothorax. MEDIASTINUM AND HEART: Stable heart size and mediastinal structures. BONY STRUCTURES: No acute findings. HARDWARE: None. OTHER: No other significant finding. IMPRESSION: Right pleural effusion and associated pneumonia right lower lobe. TECHNICAL DOCUMENTATION: JOB ID: [id number] Reading location - IP/workstation name: [email or web address] [email or web address]
[2018-08-07 12:23] LABS: ALANINE AMINOTRANSFERASE 21 U/L (21-72); ALKALINE PHOSPHATASE 66 U/L (38-126); ANION GAP 9 (5-19); ASPARTATE AMINO TRANSFERASE 17 U/L (17-59); BILIRUBIN,DIRECT 0.4 mg/dL (0.0-0.4); BILIRUBIN,TOTAL 0.4 mg/dL (0.2-1.3); BLOOD UREA NITROGEN 20 mg/dL (7-20); CALCIUM 8.5 mg/dL (8.4-10.2); CARBON DIOXIDE 32 mmol/L (22-30); CHLORIDE 98 mmol/L (98-107); GLUCOSE 105 mg/dL (75-110); POTASSIUM 3.9 mmol/L (3.6-5.0); SODIUM 138.9 mmol/L (137-145); TOTAL PROTEIN 6.8 g/dL (6.3-8.2)
[2018-08-07] MEDS ORDERED: CEFTRIAXONE 1 GM/D5W RTU 1 GM/50 ML RTUPB IV ONE (13:55)
--- NOTE | 2018-08-07 15:06 | ER Document Report ---
ED General - General Chief Complaint: Rib Pain Stated Complaint: RIGHT RIB PAIN Time Seen by Provider: 08/07/18 11:42 Primary Care Provider: HEATHER WAKEFIELD PA-C [Primary Care Provider] - Follow up as needed Notes: Patient is complaining of a constant and sharp pain in the lower lateral posterior rib region that began gradually Sunday evening and has increased in the couple of days since then. Patient recalls no unusual activity or any injury or fall or hitting that area. Also does not have any significant chest congestion or cough or phlegm production. Patient does wear a defibrillator vest and he felt that that might be rubbing on the area posterior ribs so he is taking it off and not wearing it. Patient has not been running any fevers. Patient is a dialysis patient, on Sunday, Sunday, and Sunday. He was dialyzed today. Patient also has multiple myeloma and is on chemotherapy with Dr. Kumar. Yayo pickard is recently been treated for pneumonia and was in rehab at [facility] for 3 weeks, having been discharged on July 25. He has home oxygen that he wears at 2 L. TRAVEL OUTSIDE OF THE [place] IN LAST 30 DAYS: No - Related Data Allergies/Adverse Reactions: darbepoetin jeannie [From Aranesp (in polysorbate)] Allergy (Verified 05/23/16 11: 43) epoetin jeannie [From Epogen] Allergy (Verified 05/23/16 11:43) hydromorphone [From Dilaudid] Allergy (Verified 05/23/16 11:43) Penicillins Allergy (Verified 12/14/14 09:01) Rash Past Medical History - Social History Smoking Status: Unknown if Ever Smoked Family History: Reviewed & Not Pertinent, Hypertension Patient has suicidal ideation: No Patient has homicidal ideation: No - Past Medical History Cardiac Medical History: Reports: Hx Atrial Fibrillation, Hx Hypertension Pulmonary Medical History: Reports: Hx Pneumonia - hx of year and a half ago Renal/ Medical History: Reports: Hx End Stage Renal Disease, Hx Hemodialysis GI Medical History: Reports: Hx Gastroesophageal Reflux Disease Musculoskeletal Medical History: Denies Hx Arthritis Past Surgical History: Reports: Hx Tonsillectomy, Hx Vascular Surgery - AV fistula, Other - Stem cell transplant at [place], [place]; bone biopsy 2010 - Immunizations Hx Diphtheria, Pertussis, Tetanus Vaccination: No Hx Pneumococcal Vaccination: 11/19/14 Review of Systems - Review of Systems Notes: REVIEW OF SYSTEMS: CONSTITUTIONAL : Denies fever. EENT: Denies eye, ear, nose or mouth or throat pain or other symptoms. CARDIOVASCULAR: See HPI. RESPIRATORY: Denies cough, but not a lot of chest congestion, or shortness of breath. Hurts for him to take a deep breath. GASTROINTESTINAL: Denies abdominal pain or nausea, vomiting, or diarrhea. GENITOURINARY: Denies difficulty or painful urinating, urinary frequency, blood in urine. MUSCULOSKELETAL: Denies back or neck pain. Denies joint pain or swelling. SKIN: Denies rash or skin lesions. NEUROLOGICAL: Denies LOC or altered mental status. Denies headache. Denies sensory loss or motor deficits. ALL OTHER SYSTEMS REVIEWED AND NEGATIVE. Physical Exam - Vital signs Vitals: Pulse Ox 95 08/07/18 11:07 Interpretation: Normal Notes: PHYSICAL EXAMINATION: GENERAL: Well-appearing, in no acute distress. HEAD: Atraumatic, normocephalic. EYES: Pupils equal round and reactive to light, extraocular movements intact. ENT: oropharynx clear without exudates. Moist mucous membranes. NECK: Normal range of motion, supple. LUNGS: Breath sounds clear and equal bilaterally. HEART: Regular rate and rhythm without murmurs. ABDOMEN: Soft, nontender. No guarding or rebound. No masses. BACK: No tenderness throughout entire back. Patient has exquisite tenderness in the lower right posterior rib region. Just the slightest touch and the patient jumps away and winces and complains of severe pain. EXTREMITIES: Normal range of motion without pain. NEUROLOGICAL: Normal speech, normal gait. Normal sensory, motor, and reflex exams. Awake, alert, and oriented x3. Cranial nerves normal. PSYCH: Normal mood, normal affect. SKIN: Warm, dry patient has a rather typical rash that I believe is shingles in the area where the pain is located in his right lower posterior rib region. There is an erythematous strip of rash extending from the right posterior midline, lower thoracic vertebrae region around the back of the patient and around to the right towards the front of the patient. Patient is tender along this entire area, but especially in the lower posterior aspect. Course - Re-evaluation Re-evalutation: 08/07/18 19:19 Patient's chest x-ray shows residual airspace disease in the right base. I am going to give the patient a gram of Rocephin IV while here. I spoke with Dr. Butler and she recommended putting the patient on Levaquin 500 mg every other day for 10 days to 2 weeks and also to treat the patient with Valtrex 500 mg every other day for 2 weeks. - Vital Signs Vital signs: Temp Pulse Resp BP Pulse Ox 98.3 F 24 H 127/74 H 100 08/07/18 15:01 08/07/18 15:01 08/07/18 15:01 08/07/18 15:01 - Laboratory Result Diagrams: 08/07/18 11:14 08/07/18 11:14 Laboratory results interpreted by me: 08/07/18 08/07/18 11:14 11:14 WBC 3.9 L RBC 2.56 L Hgb 8.2 L Hct 24.3 L RDW 14.8 H Plt Count 118 L Monocytes % 13.5 H Carbon Dioxide 32 H Creatinine 3.31 H Est GFR ( Amer) 22 L Est GFR (Non-Af Amer) 18 L - Diagnostic Test Radiology results interpreted by me: 08/07/18 19:20 Right lower airspace disease, likely pneumonia. Discharge - Discharge Clinical Impression: Shingles (herpes zoster) polyneuropathy, Pneumonia Condition: Stable Disposition: HOME, SELF-CARE Additional Instructions: Shingles You have shingles. Shingles is caused by the chicken pox virus, The virus has been surviving dormant in a nerve cell since you had chicken pox years ago. The virus has spread down a nerve root to reach the skin. Typically, an band-like area of pain and skin sensitivity develops, then small blisters erupt in the area. Shingles lasts two or three weeks, but sometimes leaves persistent pain. You are contagious -- you can give children chicken pox. But you can't give anyone shingles. Antiviral medicines (such as acyclovir or famciclovir) can help, but the rash usually worsens for about a week. Pain medication is often given if the area hurts. Antihistamines such as Benadryl may be necessary for itching if it does not respond to soda baths and calamine lotion. Sometimes cortisone medicine or nerve-block shots are necessary if pain is severe. If the area remains severely painful as the sores heal, or if you suspect an infection developing in the sores, see your doctor. Oral Narcotic Medication You have been given a prescription for pain control. This medication is a narcotic. It's best taken with food, as nausea can result if taken on an empty stomach. Don't operate machinery or drive within six hours of taking this medication. Do not combine this medicine with alcohol, or with any medication which can cause sedation (such as cold tablets or sleeping pills) unless you get permission from the physician. Narcotics tend to cause constipation. If possible, drink plenty of fluids and eat a diet high in fiber and fruits. Antinausea Medication You have been given a medication to suppress nausea and vomiting. This type of medication can be given as a shot, pill, or suppository. It will usually last for many hours. Pills and shots usually last six to eight hours, suppositories last about 12 hours. For the typical illness, only one or two doses of the medication may be necessary. Mild lightheadedness may occur. This type of medicine can cause drowsiness. Do not drive or operate dangerous machinery while under its influence. Do not mix with alcohol. See your doctor at once if you have muscle spasms or tightness, or uncontrollable motions (particularly of the neck, mouth, or jaw). Persistent vomiting or severe lightheadedness should also be evaluated by the physician. PNEUMONIA: Your examination indicates that you have pneumonia. This is an infection of the lung tissue, usually caused by bacteria or a virus. Symptoms include cough, fever, shaking chills, chest pain, shortness of breath, and coughing up bloody sputum. Treatment for bacterial pneumonia includes rest, antibiotics for 10 to 14 days, increasing your clear liquid intake, a cool mist humidifier at your bedside, and fever medication. Often, a repeat chest X-ray is performed in a few weeks--even if you feel better--to ascertain whether the infection has completely resolved and no underlying lung problem is present. You should call the physician if you develop persistent vomiting, high fever that does not respond to fever medication, increasing shortness of breath, confusion, or lethargy. Also, failure to improve within two to three days is an indication for re-examination. ANTIBIOTIC INJECTION: You have been given an antibiotic injection. Sometimes the injection must be combined with antibiotic pills. For some infections, the shot provides all the antibiotic that's needed. Common side effects of antibiotics include nausea, intestinal cramping, or diarrhea. These are very unusual following a shot. Women may develop vaginal yeast infections, and babies can get yeast (thrush) in the mouth following the use of antibiotics. Contact your physician if you develop significant side effects from this medication. Allergy to this antibiotic can result in hives, wheezing, faintness, or itching. If symptoms of allergy occur, call the doctor at once. ROCEPHIN: You have been given an injection of an antibiotic called Rocephin (ceftriaxone). Sometimes the injection must be combined with antibiotic pills. For some infections, such as an uncomplicated ear infection, Rocephin provides all the antibiotic that's needed. The antibiotic will be in your body for about two days. For serious infections, we usually repeat doses of Rocephin daily. Side effects are very unusual following a shot. Women may develop vaginal yeast infections, and babies can get yeast (thrush) in the mouth following the use of antibiotics. Contact your physician if you have symptoms with this medication. Allergy to this antibiotic can result in hives, wheezing, faintness, or itching. If symptoms of allergy occur, call the doctor at once. LEVOFLOXACIN: You have been given an antibacterial agent, levofloxacin (Levaquin). This medicine is not related to the penicillins, sulfas, cephalosporins, or tetracyclines. It is often given to patients who are allergic to these drugs. It has been chosen for you either because other drugs are not appropriate, or because of the nature of your problem. Levaquin should not be taken with antacids, as these can decrease its effectiveness. It can be taken without regard to meals. LEVAQUIN SHOULD NOT BE TAKEN BY CHILDREN, NURSING WOMEN, OR WOMEN. Although Levaquin is usually well-tolerated, common side effects can include nausea and diarrhea. Contact your doctor if you experience any unusual symptoms while on this medication, such as joint pain or swelling, shortness of breath, wheezing, faintness, or hives. FOLLOW-UP CARE: If you have been referred to a physician for follow-up care, call the physicians office for an appointment as you were instructed or within the next two days. If you experience worsening or a significant change in your symptoms, notify the physician immediately or return to the Emergency Department at any time for re-evaluation. See your doctor to have a repeat chest x-ray in 1 week. Take the medication as prescribed for this apparent episode of shingles as well as the apparent right lower lobe pneumonia. Return if new or worsening symptoms. Prescriptions: Oxycodone HCl/Acetaminophen [Percocet 5-325 mg Tablet] 1 tab PO Q4HP PRN #15 tablet PRN Reason: Levofloxacin [Levaquin 500 mg Tablet] 500 mg PO DAILY #14 tablet Promethazine HCl [Phenergan 25 mg Tablet] 1 tab PO Q6H PRN #15 tablet PRN Reason: Valacyclovir HCl [Valtrex 500 Mg Tablet] 500 mg PO HSP PRN #7 tablet PRN Reason: Referrals: HEATHER WAKEFIELD PA-C [Primary Care Provider] - Follow up as needed
[2018-08-07 15:29] VITALS: BP 127/74
--- NOTE | 2018-08-07 20:39 | EKG REPORT ---
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
== END 2018-08-07 15:29 | disposition home or self-care (01) ==
LOC: ER 11:02
DX: B02.9 Zoster without complications (principal); G62.9 Polyneuropathy, unspecified; J18.9 Pneumonia, unspecified organism; R07.81 Pleurodynia; I12.0 Hypertensive chronic kidney disease with stage 5 chronic kidney disease or end stage renal disease; N18.6 End stage renal disease; Z99.2 Dependence on renal dialysis; Z79.899 Other long term (current) drug therapy; C90.00 Multiple myeloma not having achieved remission
CPT/HCPCS: 93005; 36415; 85025; 80053; 71045; 93010; A9270 ×2; J0696

== ENCOUNTER 2018-08-16 13:50 | Emergency (ER) | payer MEDICARE ==
[2018-08-16] MEDS ORDERED: GABAPENTIN 300 MG CAPSULE PO ONE (15:25)
[2018-08-16] MEDS ORDERED: PREDNISONE 20 MG TABLET PO ONE (15:25)
--- NOTE | 2018-08-16 17:58 | ER Document Report ---
HPI - HPI Time Seen by Provider: 08/16/18 15:09 Pain Level: 5 Notes: Patient is a 77-year-old male presented to the emergency department with chief complaint of pain due to shingles. Patient was diagnosed here at this hospital approximately 1 week with shingles. Patient reports that the pain has increased since that time. Patient reports he went and saw his primary care provider at an urgent care today who prescribed a additional course of Valtrex and started on gabapentin. Patient is presenting to the emergency department today with complaints of pain although he has not tried taking the gabapentin yet as he states he has not gone to the pharmacy to pick it up. Patient is also concerned as he is supposed to be wearing a LifeVest and he is not wearing this due to the pain to the area of shingles. - REPRODUCTIVE Reproductive: DENIES: : Past Medical History - General Information source: Patient - Social History Smoking Status: Never Smoker Frequency of alcohol use: None Drug Abuse: None Family History: Reviewed & Not Pertinent, Hypertension Patient has suicidal ideation: No Patient has homicidal ideation: No - Past Medical History Cardiac Medical History: Reports: Hx Atrial Fibrillation, Hx Hypertension Denies: Hx Coronary Artery Disease, Hx Heart Attack Pulmonary Medical History: Reports: Hx Pneumonia - hx of year and a half ago Denies: Hx Asthma, Hx Bronchitis, Hx COPD Neurological Medical History: Denies: Hx Cerebrovascular Accident, Hx Seizures Renal/ Medical History: Reports: Hx End Stage Renal Disease, Hx Hemodialysis. Denies: Hx Peritoneal Dialysis GI Medical History: Reports: Hx Gastroesophageal Reflux Disease Musculoskeletal Medical History: Denies Hx Arthritis Past Surgical History: Reports: Hx Tonsillectomy, Hx Vascular Surgery - AV fistula, Other - Stem cell transplant at [place], [place]; bone biopsy 2010 - Immunizations Hx Diphtheria, Pertussis, Tetanus Vaccination: No Hx Pneumococcal Vaccination: 11/19/14 Vertical Provider Document - CONSTITUTIONAL Notes: PHYSICAL EXAMINATION: GENERAL: Well-appearing, well-nourished and in no acute distress. HEAD: Atraumatic, normocephalic. EYES: Pupils equal round extraocular movements intact, conjunctiva are normal. ENT: Nares patent NECK: Normal range of motion LUNGS: No respiratory distress Musculoskeletal: Normal range of motion NEUROLOGICAL: Normal speech, normal gait. PSYCH: Normal mood, normal affect. SKIN: Erythematous, vesicular rash noted to the right side over the T6, T7 dermatome. - INFECTION CONTROL TRAVEL OUTSIDE OF THE [place] IN LAST 30 DAYS: No Course - Re-evaluation Re-evalutation: 08/16/18 17:57 Call placed to [facility] so that I can speak to the anti air warfare operations officer steam distribution supervisor for [facility]. Patient has a cardiac LifeVest that he has not been wearing for approximately 1 week. Patient's is very concerned and does not feel safe going home without speaking to cardiology regarding the inability to wear the LifeVest due to the location of the shingles outbreak. Awaiting callback. Spoke with patient's anti air warfare operations officer regarding patient's concerns about the LifeVest. Patient's anti air warfare operations officer reports that unfortunately there is nothing that can be done and the risk is low for patient to keep the LifeVest off over the next couple of days until this area heals well enough for patient to wear the LifeVest. This information was relayed to the patient and his who verbalized understanding. Patient will be discharged home with dose of gabapentin, he reports that his primary care provider wrote him for 100 mg tablets once daily I feel that per the guidelines 300 mg today then 600 mg tomorrow and then 900 mg the following day is a more appropriate dose and patient does have pretty significant pain. I did provide patient with a prescription of this and he will be discharged home at this time. - Vital Signs Vital signs: Temp Pulse Resp BP Pulse Ox 97.6 F 76 16 115/58 L 98 08/16/18 13:58 08/16/18 13:58 08/16/18 13:58 08/16/18 13:58 08/16/18 13:58 Discharge - Discharge Clinical Impression: Post herpetic neuralgia Condition: Stable Disposition: HOME, SELF-CARE Additional Instructions: Shingles You have shingles. Shingles is caused by the chicken pox virus, The virus has been surviving dormant in a nerve cell since you had chicken pox years ago. The virus has spread down a nerve root to reach the skin. Typically, an band-like area of pain and skin sensitivity develops, then small blisters erupt in the area. Shingles lasts two or three weeks, but sometimes leaves persistent pain. You are contagious -- you can give children chicken pox. But you can't give anyone shingles. Antiviral medicines (such as acyclovir or famciclovir) can help, but the rash usually worsens for about a week. Pain medication is often given if the area hurts. Antihistamines such as Benadryl may be necessary for itching if it does not respond to soda baths and calamine lotion. Sometimes cortisone medicine or nerve-block shots are necessary if pain is severe. If the area remains severely painful as the sores heal, or if you suspect an infection developing in the sores, see your doctor. Please take the Valtrex as prescribed by your primary doctor. Please start taking the gabapentin that I have prescribed. Please resume wearing your L ifeVest as soon as you can tolerate it. Prescriptions: Gabapentin [Neurontin 300 mg Capsule] 300 mg PO ASDIR PRN #30 cap PRN Reason: Referrals: HEATHER WAKEFIELD PA-C [Primary Care Provider] - Follow up as needed
[2018-08-16 18:55] VITALS: BP 144/68
[2018-08-16] MEDS ORDERED: GABAPENTIN 100 MG CAPSULE PO ONE (19:01)
== END 2018-08-16 19:24 | disposition home or self-care (01) ==
LOC: ER 13:50
DX: B02.29 Other postherpetic nervous system involvement (principal); R52 Pain, unspecified; I48.91 Unspecified atrial fibrillation; I12.0 Hypertensive chronic kidney disease with stage 5 chronic kidney disease or end stage renal disease; N18.6 End stage renal disease; Z99.2 Dependence on renal dialysis
CPT/HCPCS: 99283; A9270 ×3; J7512

== ENCOUNTER 2018-08-20 10:18 | Emergency (ER) | payer MEDICARE ==
--- NOTE | 2018-08-20 10:44 | ER Document Report ---
ED General - General Chief Complaint: Fall Stated Complaint: WEAKNESS/FALL Time Seen by Provider: 08/20/18 10:34 TRAVEL OUTSIDE OF THE [place] IN LAST 30 DAYS: No - HPI Notes: Patient is a 77-year-old male that presents to the emergency department for chief complaint of generalized weakness and fall. Patient presented by EMS after being found on the ground in his living room by family. It is unclear how long the patient was on the ground. He states that he "rolled off onto the ground" but cannot tell me what he rolled off of. He does not know if he hit his head. He does not believe he lost consciousness but cannot tell me how long he was on the ground for him. Patient does receive dialysis and reportedly missed his treatment yesterday. He did reschedule for this morning at 10 AM but was too weak to get to his appointment. He denies fever, chills, chest pain, shortness of breath, cough, nausea/vomiting, and abdominal pain. Patient is a poor historian which limits HPI Past Medical History: End-stage renal disease on dialysis Past Surgical History: Reviewed in chart Social History: Reviewed in chart Family History: Reviewed and noncontributory for presenting illness Allergies: Reviewed, see documented allergy list. REVIEW OF SYSTEMS: CONSTITUTIONAL : No fever No chills No diaphoresis No recent illness EENT: No vision changes No congestion No sore throat CARDIOVASCULAR: No chest pain No palpitations RESPIRATORY: No shortness of breath No cough No difficulty breathing GASTROINTESTINAL: No abdominal pain No nausea No vomiting No diarrhea GENITOURINARY: No dysuria No hematuria No difficulty urinating MUSCULOSKELETAL: No back pain No leg pain No arm pain SKIN: No rashes No lesions LYMPHATIC: No swollen, enlarged glands. NEUROLOGICAL: No lightheadedness No headache No weakness No paresthesias PSYCHIATRIC: No anxiety No depression PHYSICAL EXAMINATION: Vital signs reviewed, nursing noted reviewed. GENERAL: Well-appearing, well-nourished and in no acute distress. HEAD: Atraumatic, normocephalic. EYES: Eyes appear normal, extraocular movements intact, sclera anicteric, conjunctiva are normal. ENT: nares patent, oropharynx clear without exudates. Moist mucous membranes. NECK: No midline cervical spine tenderness, normal range of motion, supple without lymphadenopathy LUNGS: Breath sounds mildly diminished to auscultation bilaterally and equal. No wheezes rales or rhonchi. HEART: Regular rate and rhythm without murmurs ABDOMEN: Mildly distended, soft, nontender, normoactive bowel sounds. No reboun d, guarding, or rigidity. No masses appreciated. EXTREMITIES: Left forearm AV fistula with good bruit and thrill and no bleeding. No long bone deformity or tenderness nontender, good range of motion, trace pretibial edema bilaterally NEUROLOGICAL: Mumbled speech. Moves all extremities spontaneously Motor and sensory grossly intact on exam. PSYCH: Normal mood, normal affect. SKIN: Warm, Dry, normal turgor. Erythematous vesicular rash to right flank just inferior to mammary fold, tender to palpation, no active drainage - Related Data Allergies/Adverse Reactions: darbepoetin jeannie [From Aranesp (in polysorbate)] Allergy (Verified 08/16/18 13:59) epoetin jeannie [From Epogen] Allergy (Verified 08/16/18 13:59) hydromorphone [From Dilaudid] Allergy (Verified 08/16/18 13:59) Penicillins Allergy (Verified 08/16/18 13:59) Rash Past Medical History - Social History Smoking Status: Never Smoker Family History: Reviewed & Not Pertinent, Hypertension - Past Medical History Cardiac Medical History: Reports: Hx Atrial Fibrillation, Hx Hypertension Denies: Hx Coronary Artery Disease, Hx Heart Attack Pulmonary Medical History: Reports: Hx Pneumonia - hx of year and a half ago Denies: Hx Asthma, Hx Bronchitis, Hx COPD Neurological Medical History: Denies: Hx Cerebrovascular Accident, Hx Seizures Renal/ Medical History: Reports: Hx End Stage Renal Disease, Hx Hemodialysis. Denies: Hx Peritoneal Dialysis GI Medical History: Reports: Hx Gastroesophageal Reflux Disease Musculoskeletal Medical History: Denies Hx Arthritis Past Surgical History: Reports: Hx Tonsillectomy, Hx Vascular Surgery - AV fistula, Other - Stem cell transplant at [place], [place]; bone biopsy 2010 - Immunizations Hx Diphtheria, Pertussis, Tetanus Vaccination: No Hx Pneumococcal Vaccination: 11/19/14 Physical Exam - Vital signs Vitals: Resp 11 L 08/20/18 10:42 Course - Re-evaluation Re-evalutation: 08/20/18 10:59 Vitals reviewed. Nursing notes reviewed. Patient placed on telemetry monitoring. He has no external signs of injury. It is unclear how he ended up on the ground. CT brain will be obtained to evaluate for intracranial hemorrhage or acute injury. Patient's EKG shows hyperacute T waves in V2 with no ischemic changes. He does have a shingles rash on his right side and on chart review has been seen in the emergency room twice as well as by his PCP for the shingles. He is on his second round of Valtrex and currently taking ga bapentin for the shingles. There are no active vesicles and the rash does appear to be healing although it is tender to palpation. 08/20/18 13:03 Patient's lab work again shows renal failure, he does have slight elevation in his potassium at 5.5 and he does have hyper acute T waves on EKG, he was given calcium IV for cardiac stabilization. Patient was unable to provide urine sample and Grimes catheter was placed with 2000ml of output. Grimes catheter will remain in place to treat patient's acute urinary retention. Patient's is now at bedside stating that he has seemed more confused since starting pain medications for the shingles. She states the oxycodone he was initially on was bad but the gabapentin has made him more confused. She does not feel comfortable with patient returning home given his confusion and weakness. With a normal CT scan I suspect patient's altered mental status is secondary to the medications he is on not being dialyzed out of his system. Patient's urinalysis shows no infection. Patient is requiring admission for his acute delirium, generalized weakness, hyperkalemia and urine retention. I did attempt to transfer him to [facility] who does not have any bed availability. [facility] also does not have bed availability. I discussed his care with Dr. Finnegan at [facility] who accepts admission. Patient and in agreement with plan of care. Laboratory 08/20/18 08/20/18 08/20/18 09:42 09:42 09:42 WBC 5.0 RBC 2.58 L Hgb 8.5 L Hct 24.5 L MCV 95 MCH 32.8 MCHC 34.6 RDW 15.4 H Plt Count 143 L Seg Neutrophils % 67.8 Lymphocytes % 21.5 Monocytes % 7.5 Eosinophils % 2.5 Basophils % 0.7 Absolute Neutrophils 3.4 Absolute Lymphocytes 1.1 Absolute Monocytes 0.4 Absolute Eosinophils 0.1 Absolute Basophils 0.0 Sodium 134.0 L Potassium 5.5 H Chloride 98 Carbon Dioxide 25 Anion Gap 11 BUN 63 H Creatinine 8.31 H Est GFR ( Amer) 8 L Est GFR (Non-Af Amer) 6 L Glucose 97 Calcium 9.0 Total Bilirubin 0.3 Direct Bilirubin 0.3 Neonat Total Bilirubin Not Reportable Neonat Direct Bilirubin Not Reportable Neonat Indirect Bili Not Reportable AST 16 L ALT 20 L Alkaline Phosphatase 63 Creatine Kinase 48 L Troponin I 0.025 Total Protein 6.3 Albumin 3.7 Urine Color Urine Appearance Urine pH Ur Specific Childs Urine Protein Urine Glucose (UA) Urine Ketones Urine Blood Urine Nitrite Urine Bilirubin Urine Urobilinogen Ur Leukocyte Esterase Urine WBC (Auto) Urine RBC (Auto) Urine Ascorbic Acid 08/20/18 12:55 WBC RBC Hgb Hct MCV MCH MCHC RDW Plt Count Seg Neutrophils % Lymphocytes % Monocytes % Eosinophils % Basophils % Absolute Neutrophils Absolute Lymphocytes Absolute Monocytes Absolute Eosinophils Absolute Basophils Sodium Potassium Chloride Carbon Dioxide Anion Gap BUN Creatinine Est GFR ( Amer) Est GFR (Non-Af Amer) Glucose Calcium Total Bilirubin Direct Bilirubin Neonat Total Bilirubin Neonat Direct Bilirubin Neonat Indirect Bili AST ALT Alkaline Phosphatase Creatine Kinase Troponin I Total Protein Albumin Urine Color STRAW Urine Appearance CLEAR Urine pH 9.0 Ur Specific Childs 1.006 Urine Protein 30 H Urine Glucose (UA) 50 H Urine Ketones NEGATIVE Urine Blood NEGATIVE Urine Nitrite NEGATIVE Urine Bilirubin NEGATIVE Urine Urobilinogen NEGATIVE Ur Leukocyte Esterase NEGATIVE Urine WBC (Auto) 1 Urine RBC (Auto) 1 Urine Ascorbic Acid NEGATIVE Chest X-Ray 08/20/18 10:34 IMPRESSION: No acute findings. Bibasilar rounded atelectasis with pleural thickening. Head CT 08/20/18 10:36 IMPRESSION: NORMAL BRAIN CT WITHOUT CONTRAST. EVIDENCE OF ACUTE STROKE: NO. 08/20/18 14:01 - Vital Signs Vital signs: Temp Pulse Resp BP Pulse Ox 97.5 F 56 L 17 154/66 H 100 08/20/18 10:44 08/20/18 10:44 08/20/18 13:01 08/20/18 13:02 08/20/18 13:01 - Laboratory Result Diagrams: 08/20/18 09:42 08/20/18 09:42 Laboratory results interpreted by me: 08/20/18 08/20/18 08/20/18 09:42 09:42 12:55 RBC 2.58 L Hgb 8.5 L Hct 24.5 L RDW 15.4 H Plt Count 143 L Sodium 134.0 L Potassium 5.5 H BUN 63 H Creatinine 8.31 H Est GFR ( Amer) 8 L Est GFR (Non-Af Amer) 6 L AST 16 L ALT 20 L Creatine Kinase 48 L Urine Protein 30 H Urine Glucose (UA) 50 H - EKG Interpretation by Me Additional EKG results interpreted by me: 08/20/18 10:56 Interpreted by myself 1051: Normal sinus rhythm, rate 55, normal axis, hyperacute T waves V2, no STEMI Critical Care Note - Critical Care Note Total time excluding time spent on procedures (mins): 35 Comments: Critical care time 35 exclusive from separate billable procedures for a patient requiring complex medical decision making, and high potential for clinical deterioration. Time spent obtaining history from patient or surrogate, discussions with consultants, development of treatment plan with patient or surrogate, evaluation of patient's response to treatment, examination of patient, ordering and performing treatments and interventions, ordering and review of laboratory studies, re-evaluation of patient's condition, ordering and review of radiographic studies and review of old charts Discharge - Discharge Clinical Impression: Urinary retention, Acute delirium, Hyperkalemia, Generalized weakness Fall Qualifiers: Encounter type: initial encounter Qualified Code(s): W19.XXXA - Unspecified fall, initial encounter Shingles Qualifiers: Herpes zoster complications: without complications Qualified Code(s): B02.9 - Zoster without complications Condition: Stable Disposition: [facility]
[2018-08-20 11:18] LABS: ABSOLUTE EOSINOPHILS # (AUTO) 0.1 10^3/uL (0.0-0.6); ABSOLUTE LYMPHOCYTES (AUTO) 1.1 10^3/uL (0.5-4.7); ABSOLUTE MONOCYTES (AUTO) 0.4 10^3/uL (0.1-1.4); ABSOLUTE NEUT (AUTO) 3.4 10^3/uL (1.7-8.2); BASOPHILS % (AUTO) 0.7 % (0-2); EOSINOPHILS % (AUTO) 2.5 % (0-6); HEMATOCRIT 24.5 % (37.9-51.0); HEMOGLOBIN 8.5 g/dL (13.5-17.0); LYMPHOCYTES % (AUTO) 21.5 % (13-45); MEAN CORPUSCULAR HEMOGLOBIN 32.8 pg (27.0-33.4); MEAN CORPUSCULAR HGB CONC 34.6 g/dL (32.0-36.0); MEAN CORPUSCULAR VOLUME 95 fl (80-97); MONOCYTES % (AUTO) 7.5 % (3-13); PLATELET COUNT 143 10^3/uL (150-450); RED BLOOD COUNT 2.58 10^6/uL (4.35-5.55); RED CELL DISTRIBUTION WIDTH 15.4 % (11.5-14.0); SEGMENTED NEUTROPHILS % (AUTO) 67.8 % (42-78); TOTAL CELLS COUNTED % (AUTO) 100 %
--- NOTE | 2018-08-20 11:21 | RADIOLOGY REPORT (SQ) ---
EXAM DESCRIPTION: CT HEAD WITHOUT COMPLETED DATE/TIME: 08/20/2018 11:08 am REASON FOR STUDY: trauma COMPARISON: None. TECHNIQUE: Axial images acquired through the brain without intravenous contrast. Images reviewed wi th bone, brain and subdural windows. Additional sagittal and coronal reconstructions were generated. Images stored on PACS. All CT scanners at this facility use dose modulation, iterative reconstruction, and/or weight based d osing when appropriate to reduce radiation dose to as low as reasonably achievable (ALARA). [facility]: Dose Right [facility]: CareDose [facility]: Dose Right [facility]: Teradose 4D [facility]: CastleOS RADIATION DOSE: CT Rad equipment meets quality standard of care and radiation dose reduction techniq ues were employed. CTDIvol: 53.2 mGy. DLP: 1097 mGy-cm. mGy. LIMITATIONS: None. FINDINGS: VENTRICLES: Normal size and contour. CEREBRUM: No masses. No hemorrhage. No midline shift. No evidence for acute infarction. Normal gra y/white matter differentiation. No areas of low density in the white matter. CEREBELLUM: No masses. No hemorrhage. No alteration of density. No evidence for acute infarction. EXTRAAXIAL SPACES: No fluid collections. No masses. ORBITS AND GLOBE: No intra- or extraconal masses. Normal contour of globe without masses. CALVARIUM: No fracture. PARANASAL SINUSES: No fluid or mucosal thickening. SOFT TISSUES: No mass or hematoma. OTHER: No other significant finding. IMPRESSION: NORMAL BRAIN CT WITHOUT CONTRAST. EVIDENCE OF ACUTE STROKE: NO. COMMENT: Quality ID # [id number]: Final reports with documentation of one or more dose reduction techniques (e.g., Automated exposure control, adjustment of the mA and/or kV according to patient size, use of iterative reconstruction technique) TECHNICAL DOCUMENTATION: JOB ID: [id number] [employer]- All Rights Reserved Reading location - IP/workstation name: [email or web address]
--- NOTE | 2018-08-20 11:23 | RADIOLOGY REPORT (SQ) ---
EXAM DESCRIPTION: CHEST SINGLE VIEW COMPLETED DATE/TIME: 08/20/2018 11:11 am REASON FOR STUDY: weakness COMPARISON: CT angio chest 03/20/2017 Chest films 06/01/2017, 06/17/2018, 06/29/2018 EXAM PARAMETERS: NUMBER OF VIEWS: One view. TECHNIQUE: Single frontal radiographic view of the chest acquired. RADIATION DOSE: NA LIMITATIONS: None. FINDINGS: LUNGS AND PLEURA: There is chronic rounded atelectasis in the right and left posterior cos tophrenic sulcus. Stable blunting of the right and left lateral costophrenic sulci from trace fluid or pleural thickeni ng. No acute infiltrates. No pneumothorax. MEDIASTINUM AND HILAR STRUCTURES: No masses. Contour normal. HEART AND VASCULAR STRUCTURES: Heart normal in size. Normal vasculature. BONES: No acute findings. HARDWARE: None in the chest. OTHER: No other significant finding. IMPRESSION: No acute findings. Bibasilar rounded atelectasis with pleural thickening. TECHNICAL DOCUMENTATION: JOB ID: [id number] [employer]- All Rights Reserved Reading location - IP/workstation name: [email or web address]
[2018-08-20 11:35] LABS: ALANINE AMINOTRANSFERASE 20 U/L (21-72); ALBUMIN 3.7 g/dL (3.5-5.0); ALKALINE PHOSPHATASE 63 U/L (38-126); ANION GAP 11 (5-19); ASPARTATE AMINO TRANSFERASE 16 U/L (17-59); BILIRUBIN,DIRECT 0.3 mg/dL (0.0-0.4); BILIRUBIN,TOTAL 0.3 mg/dL (0.2-1.3); BLOOD UREA NITROGEN 63 mg/dL (7-20); CARBON DIOXIDE 25 mmol/L (22-30); CHLORIDE 98 mmol/L (98-107); CREATINE KINASE 48 U/L (55-170); GLUCOSE 97 mg/dL (75-110); POTASSIUM 5.5 mmol/L (3.6-5.0); TOTAL PROTEIN 6.3 g/dL (6.3-8.2)
[2018-08-20 13:23] LABS: APPEARANCE,URINE CLEAR; BILIRUBIN,URINE NEGATIVE (NEGATIVE); COLOR,URINE STRAW; GLUCOSE, URINE 50 mg/dL (NEGATIVE); KETONES,URINE NEGATIVE (NEGATIVE); LEUKOCYTE ESTERASE,URINE NEGATIVE (NEGATIVE); NITRITE,URINE NEGATIVE (NEGATIVE); PROTEIN,URINE 30 mg/dL (NEGATIVE); URINE SPECIFIC GRAVITY 1.006; UROBILINOGEN,URINE NEGATIVE mg/dL (<2.0)
[2018-08-20] MEDS ORDERED: CALCIUM GLUCONATE 1000 MG/10 ML INJ IV ONE (14:01)
[2018-08-20] MEDS ORDERED: SODIUM POLYSTYRENE SULFONATE 15 GM/60 ML PO ONE (14:35)
--- NOTE | 2018-08-20 14:56 | EKG REPORT ---
SEVERITY:- ABNORMAL ECG - SINUS RHYTHM PROBABLE LEFT ATRIAL ABNORMALITY NONSPECIFIC IVCD WITH LAD : Confirmed by: Brandon Chahal 20-Aug-2018 14:54:49
[2018-08-20 19:34] LABS: ALANINE AMINOTRANSFERASE 17 U/L (21-72); ALBUMIN 3.3 g/dL (3.5-5.0); ALKALINE PHOSPHATASE 54 U/L (38-126); ANION GAP 13 (5-19); ASPARTATE AMINO TRANSFERASE 15 U/L (17-59); BILIRUBIN,DIRECT 0.4 mg/dL (0.0-0.4); BILIRUBIN,TOTAL 0.4 mg/dL (0.2-1.3); BLOOD UREA NITROGEN 65 mg/dL (7-20); CALCIUM 8.8 mg/dL (8.4-10.2); CARBON DIOXIDE 23 mmol/L (22-30); CHLORIDE 99 mmol/L (98-107); GLUCOSE 90 mg/dL (75-110); POTASSIUM 5.1 mmol/L (3.6-5.0); SODIUM 134.8 mmol/L (137-145); TOTAL PROTEIN 5.7 g/dL (6.3-8.2)
--- NOTE | 2018-08-20 22:32 | ER Document Report ---
Doctor's Note Notes: 08/20/18 22:31 Care of this patient was turned over to me at the beginning of my shift. He is awaiting transfer divided for dialysis. I went and evaluated the patient. He was resting comfortably. expresses concern that he is continuing to have intermittent myoclonic jerks. He was on the monitor, vital signs were stable. He did wake easily. He has no acute complaints or concerns. AV fistula noted in the left forearm with palpable thrill. Intermittent myoclonic jerks but moving all 4 extremities spontaneously. At this time patient is stable for transport.
[2018-08-20 22:39] VITALS: BP 144/69
== END 2018-08-20 22:39 | disposition short-term general hospital (02) ==
LOC: ER 10:18
DX: Z04.3 Encounter for examination and observation following other accident (principal); R33.9 Retention of urine, unspecified; R53.1 Weakness; G25.3 Myoclonus; B02.9 Zoster without complications; I12.0 Hypertensive chronic kidney disease with stage 5 chronic kidney disease or end stage renal disease; N18.6 End stage renal disease; Z99.2 Dependence on renal dialysis; Z91.15 Patient's noncompliance with renal dialysis; R41.0 Disorientation, unspecified; E87.5 Hyperkalemia; J98.11 Atelectasis; R14.0 Abdominal distension (gaseous); Z88.0 Allergy status to penicillin; Z88.5 Allergy status to narcotic agent; Z88.8 Allergy status to other drugs, medicaments and biological substances
CPT/HCPCS: 93005; 99291; 96374; 36415; 82550; 85025; 80053; 81001; 84484; 71045; 70450; 93010; J0610

== ENCOUNTER → 2018-09-16 | Outpatient (CLI) | payer MEDICARE ==
--- NOTE | 2018-09-16 15:33 | RADIOLOGY REPORT (SQ) ---
EXAM DESCRIPTION: KUB/ABDOMEN (SINGLE VIEW) COMPLETED DATE/TIME: 09/16/2018 11:29 am REASON FOR STUDY: UNSPEC ABD PAIN (R10.9), GAS PAIN (R14.1) R14.1 GAS PAIN R10.9 UNSPECIFIED ABDOM INAL PAIN COMPARISON: None. NUMBER OF VIEWS: One view. TECHNIQUE: Supine radiographic image of the abdomen acquired. LIMITATIONS: None. FINDINGS: BOWEL GAS PATTERN: There is considerable large and small bowel gas with no significantly d istended small bowel loops. There is considerable retained stool in the colon and rectum. CALCIFICATIONS: No suspicious calcifications. SOFT TISSUES: No gross mass or suggestion of organomegaly. HARDWARE: None in the abdomen. BONES: No acute fracture. No worrisome bone lesions. OTHER: No other significant finding. IMPRESSION: Constipation. Possible fecal impaction. TECHNICAL DOCUMENTATION: JOB ID: [id number] [employer]- All Rights Reserved Reading location - IP/workstation name: [email or web address]
== END ==
LOC: RAD 11:12
PROVIDERS: ATTEND Physician Assistant Medical
DX: K59.00 Constipation, unspecified (principal); R14.1 Gas pain; R10.9 Unspecified abdominal pain
CPT/HCPCS: 74018